=== PATIENT | male | born 1940 | race Caucasian/White ===

== ENCOUNTER 2019-01-24 18:23 | Inpatient (IN) | payer MEDICARE, SELFPAY ==
[2019-01-24] VITALS (15 sets, daily range): BP systolic 83–127; BP diastolic 50–71; PULSE 48–85; RESP 13–22; TEMP 36.2–36.6; O2SAT 96–99; BMI 22.9; BMI 24.2
--- NOTE | 2019-01-24 18:24 | ED.RN ---
PER DR. CALIX THIS IS NOT A STROKE.
--- NOTE | 2019-01-24 18:26 | CT_ITS ---
STUDY: CT BRAIN WITHOUT CONTRAST REASON FOR EXAM: Male, 78 years old. Altered mental status. TECHNIQUE: Transaxial CT imaging of the brain was performed without administration of intravenous contrast material. Individualized dose optimization techniques were used for this CT. COMPARISON: No relevant priors. FINDINGS: No evidence of intracranial hemorrhage, mass, acute infarct, or hydrocephalus. [Chronic microangiopathic changes in the white matter.] [Atherosclerosis of the intracranial arteries.] [No acute osseous abnormality.] [Visualized paranasal sinuses and mastoid air cells patent.] [Visualized intracranial soft tissues unremarkable.] [ASPECTS 03/28] CT/Brain/Head without Contrast IMPRESSION: No acute intracranial findings. Electronically Signed: Ashok Lamb, at 19:36 EDT Tel , Service support ,
--- NOTE | 2019-01-24 18:26 | EKG12_ITS ---
Test Reason : STROKE SX Blood Pressure : / mmHG Vent. Rate : 057 BPM Atrial Rate : 057 BPM P-R Int : 158 ms QRS Dur : 086 ms QT Int : 416 ms P-R-T Axes : 066 048 037 degrees QTc Int : 404 ms Sinus bradycardia Otherwise normal ECG Confirmed by EMILY PRUETT ([id number]), editor news SG NGUYỄN ([id number]) on 01/28/2019 1:17:49 PM Referred By: Eduardo Travis Confirmed By:EMILY PRUETT
--- NOTE | 2019-01-24 18:29 | ED.VIS.GEN ---
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 She noted acute change in mental status after his Solomon was changed. They states he has not spoken. He did respond note when the nurse asked how tall he was or how much she weighed. Limited by: - - Not alert or oriented Onset: Today - 1600 Context: Sudden Onset Timing: Continuous - Change in mental status Quality: Altered mental status Location: Residents Current Severity: Severe Maximum Severity: Severe Worsened by: Probable UTI after Solomon placement Relieved by: Nothing Associated Symptoms: Unable to determine Narrative: Patient is an 78-year-old male who was brought by ambulance and prehospital stroke alert was called. Based on history concern patient has infectious etiology for his change in mental status. Based on his abnormal facial twitches on the left also need to evaluate for focal seizure. Patient unable to give history. Prior similar symptoms: No Recent Illness/Hospitalization: No Past Medical History - Allergies and Home Meds Allergies/Adverse Reactions: Allergies No Known Allergies Allergy (Verified 01/24/19 18:34) Primary Care Physician: Sacha Flores MD [STAFF PHYSICIAN] - Lives: With Family Alcohol: None Drugs: None Diagnostic/Tx/Re-eval Chest X-Ray - ED: Read by Radiologist, Normal, Heart, Lungs, Mediastinum, Bony Structures, No Acute Disease Impressions Brain CT 01/24/19 18:26 IMPRESSION: No acute intracranial findings. Electronically Signed: Joseangelito Adonis, at 19:36 EDT Tel , Service support , Chest X-Ray 01/24/19 18:40 IMPRESSION: [Negative chest radiograph.] Electronically Signed: Ashok Lamb, at 18:58 EDT Tel , Service support , 01/24/19 18:26 Brain/Head without Contrast [CT] Stat 01/24/19 18:40 Chest 1 View (Portable) [RAD] Stat Laboratory Results 01/24/19 01/24/19 01/24/19 18:29 18:29 18:29 WBC 11.1 H RBC 3.11 L Hgb 10.0 L Hct 29.1 L MCV 93.6 MCH 32.2 H MCHC 34.4 RDW Std Deviation 42.8 RDW Coeff of Jaylin 12.5 Plt Count 222 MPV 9.2 Immature Gran % (Auto) 0.600 Neut % (Auto) 78.7 H Lymph % (Auto) 12.6 L Reeves % (Auto) 7.3 Eos % (Auto) 0.5 Baso % (Auto) 0.3 Absolute Neuts (auto) 8.7 H Absolute Lymphs (auto) 1.40 Nucleated RBC % 0 PT 13.6 INR 1.1 APTT 29.7 Sodium 118 L* Potassium 4.0 Chloride 84 L Carbon Dioxide 26.0 Anion Gap 8 BUN 21 H Creatinine 1.25 Estim Creat Clear Calc 48.33 Est GFR (MDRD) Af Amer 71 Est GFR (MDRD) Non-Af 59 L BUN/Creatinine Ratio 16.8 Glucose 193 H Lactic Acid Calcium 8.0 L Total Bilirubin 0.50 AST 12 L ALT 15 L Alkaline Phosphatase 50 Total Protein 6.3 L Albumin 3.6 Globulin 2.7 Albumin/Globulin Ratio 1.3 Urine Color Urine Clarity Urine pH Ur Specific [place] Urine Protein Urine Glucose (UA) Urine Ketones Urine Occult Blood Urine Nitrite Urine Bilirubin Urine Urobilinogen Ur Leukocyte Esterase Urine RBC Urine WBC Ur Squamous Epith Cells Urine Bacteria Urine Mucus 01/24/19 01/24/19 18:29 18:45 WBC RBC Hgb Hct MCV MCH MCHC RDW Std Deviation RDW Coeff of Jaylin Plt Count MPV Immature Gran % (Auto) Neut % (Auto) Lymph % (Auto) Reeves % (Auto) Eos % (Auto) Baso % (Auto) Absolute Neuts (auto) Absolute Lymphs (auto) Nucleated RBC % PT INR APTT Sodium Potassium Chloride Carbon Dioxide Anion Gap BUN Creatinine Estim Creat Clear Calc Est GFR (MDRD) Af Amer Est GFR (MDRD) Non-Af BUN/Creatinine Ratio Glucose Lactic Acid 1.6 Calcium Total Bilirubin AST ALT Alkaline Phosphatase Total Protein Albumin Globulin Albumin/Globulin Ratio Urine Color Yellow Urine Clarity Cloudy Urine pH 8.0 Ur Specific [place] 1.010 Urine Protein 30 H Urine Glucose (UA) 250 H Urine Ketones 15 H Urine Occult Blood 250 H Urine Nitrite Negative Urine Bilirubin Negative Urine Urobilinogen Normal Ur Leukocyte Esterase 100 H Urine RBC > 100 SEEN Urine WBC 5-10 SEEN Ur Squamous Epith Cells 0 SEEN Urine Bacteria 0 SEEN Urine Mucus 0 SEEN - Medical Decision Making With change in mental status after placement of Solomon and urine appears cloudy and with gross hematuria concern for urinary tract infection. Sepsis work-up was undertaken. Because he has Babinski sign and facial twitching on the left need to evaluate for seizure, intracranial bleed. Sodium is 118. Sister is now present. She states the left facial twitching is new. Concern patient is a focal seizure and may be secondary to hyponatremia. 3% sodium chloride was ordered at 50 cc per per hour. Urine does not appear infected. He does have evidence of anemia. Chest x-ray reveals no acute pathology. CT has not been performed. - Critical Care Time Critical care time (excluding procedures): 30-74 minutes, Discussing w/Patient &/or Family/Business Account Specialist, Discussing w/Consultants, Arranging Admission or Transfer - Critical care time 37 minutes ED Disposition - Plan for ED Patient: Disposition: Acute Care Hospital [facility] Diagnosis: Hyponatremia, Facial twitching, Change in mental status, Hyperglycemia due to type 2 diabetes mellitus Referrals: Sacha Flores MD [STAFF PHYSICIAN] -
--- NOTE | 2019-01-24 18:40 | RAD_ITS ---
STUDY: X-RAY CHEST REASON FOR EXAM: Male, 78 years old. Right-sided weakness and facial droop. ALOC. TECHNIQUE: AP portable upright CXR COMPARISON: None. FINDINGS: [No apparent pneumothorax, pneumonia, pleural effusion, or edema.] [Cardiac silhouette, kike and mediastinal contours are within normal limits.] [No acute osseous abnormality.] [No evidence of free air under the diaphragm.] RAD/Chest 1 View (Portable) IMPRESSION: [Negative chest radiograph.] Electronically Signed: Ashok Lamb, at 18:58 EDT Tel , Service support ,
[2019-01-24 18:42] LABS: Absolute Neutrophil Count 8.7 X10^3/uL (2.0-7.7); Basophil# 0.03 X10^3/uL; Basophil% 0.3 % (0-1); Eosinophil# 0.06 X10^3/uL; Eosinophils% 0.5 % (0-5); Hematocrit 29.1 % (40-54); Lymphocyte % 12.6 % (19-41); Mean Corp Hgb Conc 34.4 g/dL (32-36); Mean Corpuscular Hgb 32.2 pg (27.0-32.0); Mean Corpuscular Volume 93.6 fL (80-94); Mean Platelet Vol. 9.2 fl (6.2-12.0); Monocyte# 0.81 X10^3/uL; Monocyte% 7.3 % (0-10); NRBC Flagged by Analyzer 0 % (0-5); Neutrophil # 8.72 X10^3/uL (2.7-7.7); Neutrophil % 78.7 % (47-70); Platelet Count 222 K/mm3 (150-450); RBC Distribution Width CV 12.5 % (11.6-14.6); RBC Distribution Width SD 42.8 fl (35.1-43.9); Red Blood Count 3.11 M/mm3 (4.6-6.2); White Blood Count 11.1 K/mm3 (4.4-11.0)
[2019-01-24 18:47] LABS: International Normalized Ratio 1.1; Prothrombin Time (Protime)PT. 13.6 SECONDS (11.7-14.9)
[2019-01-24 18:48] LABS: Partial Thromboplast Time 29.7 Seconds (24.1-36.2)
[2019-01-24] MEDS: Ceftriaxone 1 GM/50 ML BAG IV (18:52)
--- NOTE | 2019-01-24 18:55 | ED.RN ---
ITTLE TO NO INFO GIVEN TO THIS RN BY EMS. THIS RN HAD TO ASK EMS 3 TIMES FOR SS TO TRIAGE PT. NO HEALTH HX OR MEDICATION HX ON PT. NOTHING SAID WHETHER OR NOT FAMILY WOULD BE ARRIVING TO ED.
[2019-01-24 18:57] LABS: Bacteria 0 SEEN /hpf (None Seen); Mucous, Urine 0 SEEN /hpf (<or=2+); Squamous Epithelial Cells - UA 0 SEEN /hpf (0-5)
[2019-01-24 18:58] LABS: ALB/GLOB Ratio 1.3 RATIO (0.9-2.4); AST(SGOT) 12 U/L (15-37); Alanine Aminotransfer ALT/SGPT 15 U/L (16-61); Albumin, Serum 3.6 g/dL (3.2-5.0); Alkaline Phosphatase 50 U/L (45-117); Anion Gap 8 (5-15); BUN 21 mg/dL (7-18); BUN/Creat Ratio 16.8 RATIO (10-20); Chloride 84 mmol/L (98-107); Creatinine, Serum 1.25 mg/dL (0.70-1.30); EST Glomerular Filtration Rate 59 mL/min (>60); Est Glom Filt Rate - Afr Amer 71 mL/min (>60); Estimated Creatinine Clearance 48.33 ml/min; Globulin 2.7 g/dL (2.2-4.2); Glucose 193 mg/dL (74-106); Protein, Total 6.3 g/dL (6.4-8.2); Sodium Level 118 mmol/L (136-145)
[2019-01-24 19:01] LABS: Color, Urine Yellow (Yellow); Glucose, Dipstick 250 mg/dl (Normal); Ketone-Dipstick 15 mg/dl (Negative); Leukocyte Esterase-Dipstick 100 /ul (Negative); Nitrite-Dipstick Negative (Negative); Occult Blood-Urine 250 /ul (Negative); Protein-Dipstick 30 mg/dl (Negative); Urine Bilirubin Dipstick Negative (Negative); Urine Clarity Cloudy (Clear); Urine Urobilinogen Normal (Normal)
[2019-01-24 19:03] LABS: Lactic Acid 1.6 mmol/L (0.4-2.0)
[2019-01-24 19:08] LABS: Red Blood Cells-Urine > 100 SEEN /hpf (0-5); White Blood Cells 5-10 SEEN /hpf (0-5)
[2019-01-24] MEDS: Sodium Chloride 3% 500 ML 50 ML IV (19:36)
--- NOTE | 2019-01-24 19:43 | NURSING ---
TALKED TO [facility] AND WAS TOLD PATIENT COULD STAY AND THEY WILL FOLLOW UP TOMORROW
--- NOTE | 2019-01-24 19:58 | HP.PCM_ITS ---
Problem List (1) Hyponatremia Status: Acute (2) Facial twitching Status: Acute (3) Change in mental status Status: Acute History of Present Illness Date of Admission: 01/24/19 Chief Complaint: Fidgeting The patient is a 78 year old M with a significant history of diabetes mellitus; hypertension; hyperlipidemia; BPH status post TURP who presented to the emergency department because his family noticed that he was fidgeting. On the same day of presentation patient went to the doctor's office where a previous Solomon catheter was placed. Patient was given water to drink. However he vomited the water. Because he could not urinate the urinary catheter was placed back. At the emergency department patient was found to have some twitching of the face that his family reported that it was new. Patient was found to have low sodium. Past Medical History Medical History: Medical History (Last Reviewed 01/24/19 @ 23:53 by Eduardo Travis MD) Diabetes E11.9 HTN (hypertension) I10 Allergies No Known Allergies Allergy (Verified 01/24/19 18:34) Home Medications: Ambulatory Orders Medication Instructions Recorded Aspirin [Aspirin, Baby] 81 mg PO DAILY@0800 01/24/19 Cholecalciferol (VIT D3) [Vitamin 1,000 unit PO DAILY 01/24/19 D] Fosinopril Sodium 10 mg PO DAILY 01/24/19 Glipizide 5 mg PO DAILY 01/24/19 Metformin HCl 850 mg PO BID 01/24/19 Mirtazapine [Remeron] 7.5 mg PO DAILY 01/24/19 Pioglitazone [Actos] 15 mg PO DAILY 01/24/19 Simvastatin 40 mg PO DAILY 01/24/19 Tamsulosin HCl 0.4 mg PO DAILY 01/24/19 Surgical History: Surgical History (Last Reviewed 01/24/19 @ 23:53 by Eduardo Travis MD) S/P TURP Z90.79 Lives: With Family Smoking Status: Unknown if ever smoked Alcohol: None Drugs: None - *Family History Maternal History Items: Cancer Paternal History Items: Diabetes, Heart Disease, - - His father had amputation of his leg. Review of Systems Unable to obtain accurate/complete ROS d/t: Encephalopathy VTE Information - Inpt Only VTE Present on Admission: No VTE Mechan Device Prophylaxis: None VTE Pharm Prophylaxis ordered?: Yes Patient Problems: Active and Suspected Problems (Last Updated 01/24/19 @ 22:13 by Eduardo Travis MD) Hyponatremia (Acute) Facial twitching (Acute) Change in mental status (Acute) Hyperglycemia due to type 2 diabetes mellitus (Acute) - Physical Exam General: Alert, Confused HEENT: Atraumatic, Normocephalic Neck: Supple, No JVD, Negative Carotid Bruits Lungs: Clear to auscultation, Normal air movement Cardiovascular: Bradycardic Abdomen: Bowel Sounds Present, Soft, Non Tender Extremities: No edema, Capillary Refill Less than 3 Seconds Skin: No rashes, No breakdown Musculoskeletal: No Tenderness to Palpation of Joints or Extremities - Confused. Neurological: Cranial nerves II-XII grossly intact - Hard of hearing Psych/Mental Status: Anxious Vital Signs Temp Pulse Resp BP Pulse Ox 97.7 F L 59 L 22 H 106/63 96 01/24/19 18:25 01/24/19 19:26 01/24/19 19:26 01/24/19 19:26 01/24/19 19:26 Oxygen Delivery Method Room Air Weight: 72.5 kg Body Mass Index (BMI) 22.9 Finger Stick Blood Glucose 212 Laboratory Tests Past 24 Hrs 01/24/19 01/24/19 01/24/19 18:29 18:29 18:29 WBC 11.1 H RBC 3.11 L Hgb 10.0 L Hct 29.1 L MCV 93.6 MCH 32.2 H MCHC 34.4 RDW Std Deviation 42.8 RDW Coeff of Jaylin 12.5 Plt Count 222 MPV 9.2 Immature Gran % (Auto) 0.600 Neut % (Auto) 78.7 H Lymph % (Auto) 12.6 L [place] % (Auto) 7.3 Eos % (Auto) 0.5 Baso % (Auto) 0.3 Absolute Neuts (auto) 8.7 H Absolute Lymphs (auto) 1.40 Nucleated RBC % 0 PT 13.6 INR 1.1 APTT 29.7 Sodium 118 L* Potassium 4.0 Chloride 84 L Carbon Dioxide 26.0 Anion Gap 8 BUN 21 H Creatinine 1.25 Estim Creat Clear Calc 48.33 Est GFR (MDRD) Af Amer 71 Est GFR (MDRD) Non-Af 59 L BUN/Creatinine Ratio 16.8 Glucose 193 H Lactic Acid Calcium 8.0 L Total Bilirubin 0.50 AST 12 L ALT 15 L Alkaline Phosphatase 50 Total Protein 6.3 L Albumin 3.6 Globulin 2.7 Albumin/Globulin Ratio 1.3 Urine Color Urine Clarity Urine pH Ur Specific [place] Urine Protein Urine Glucose (UA) Urine Ketones Urine Occult Blood Urine Nitrite Urine Bilirubin Urine Urobilinogen Ur Leukocyte Esterase Urine RBC Urine WBC Ur Squamous Epith Cells Urine Bacteria Urine Mucus 01/24/19 01/24/19 18:29 18:45 WBC RBC Hgb Hct MCV MCH MCHC RDW Std Deviation RDW Coeff of Jaylin Plt Count MPV Immature Gran % (Auto) Neut % (Auto) Lymph % (Auto) [place] % (Auto) Eos % (Auto) Baso % (Auto) Absolute Neuts (auto) Absolute Lymphs (auto) Nucleated RBC % PT INR APTT Sodium Potassium Chloride Carbon Dioxide Anion Gap BUN Creatinine Estim Creat Clear Calc Est GFR (MDRD) Af Amer Est GFR (MDRD) Non-Af BUN/Creatinine Ratio Glucose Lactic Acid 1.6 Calcium Total Bilirubin AST ALT Alkaline Phosphatase Total Protein Albumin Globulin Albumin/Globulin Ratio Urine Color Yellow Urine Clarity Cloudy Urine pH 8.0 Ur Specific [place] 1.010 Urine Protein 30 H Urine Glucose (UA) 250 H Urine Ketones 15 H Urine Occult Blood 250 H Urine Nitrite Negative Urine Bilirubin Negative Urine Urobilinogen Normal Ur Leukocyte Esterase 100 H Urine RBC > 100 SEEN Urine WBC 5-10 SEEN Ur Squamous Epith Cells 0 SEEN Urine Bacteria 0 SEEN Urine Mucus 0 SEEN Assessment/Plan All Active Problems (Last Updated 01/24/19 @ 22:13 by Eduardo Travis MD) Hyponatremia (Acute) Facial twitching (Acute) Change in mental status (Acute) Hyperglycemia due to type 2 diabetes mellitus (Acute) The patient is a 78 year old M with a significant history of diabetes mellitus; hypertension; hyperlipidemia; BPH status post TURP who presented to the emergency department because his family noticed that he was fidgeting; and also noticed to have a twitches of the face and found to have hyponatremia.. Acute encephalopathy secondary to hypovolemic hypoosmolar hyponatremia On presentation his sodium was 118 His serum osmolality was 253. His TSH and his cortisol level was unremarkable. His urine osmolality was 614. We will check urine sodium. Patient was started at 3% hypertonic saline at 50 mils per hour at the ED. We will continue and admit patient to the intensive care unit. Check sodium level every 4 hours. Carbonation Equipment Operator consult. Most likely his twitching; fidgeting and altered mental status is from his low sodium. At the emergency department discussed with the emergency department doctor to give Keppra. However, all his symptoms are likely from the hyponatremia. We will repeat additional dose of Keppra in a.m. Will get EEG. If symptoms persist consider MRI; consult neurology; and continue Keppra. We will keep patient n.p.o. Speech to eval for swallowing. Trend CBC Abnormal urinalysis Patient noted to have urine occult blood and leukocyte esterase in his urine. Of note patient has a urinary catheter. Urine bacteria was 0. Patient received ceftriaxone at the emergency department. Because of his acute symptoms we will continue ceftriaxone at this time. Urine culture is pending Hypertension On presentation his blood pressure was within goal. Because of n.p.o. status hold fosinopril. Hydralazine as needed ordered. Trend blood pressures and adjust blood pressure medication as necessary.. Diabetes mellitus On presentation his blood glucose was within hospital goal of 140-193. At home metformin and glipizide as well as Actos. Will hold oral hypoglycemic regimen especially as patient is n.p.o. and is too early in his admission. Will put patient on correction scale insulin. Accu-Chek every 6 hours. DVT Prophylaxis Subcutaneous Lovenox. Code Visit Inpatient E&M: 16317 Init Hosp L3
[2019-01-24 20:23] LABS: Thyroid Stim Hormone (TSH) 0.89 uIU/mL (0.358-3.74)
[2019-01-24] MEDS: Morphine 2 MG/ML Syringe IV (20:26)
[2019-01-24 20:39] LABS: Osmolality, Urine 614 mOsm/KG
[2019-01-24 20:39] LABS: Osmolality, Serum 253 mOsm/KG (280-301)
[2019-01-24] MEDS: levETIRAcetam IV 1,000 MG/100 ML BAG 400 MG IV (20:39)
[2019-01-24] MEDS: Ondansetron 4 MG/2 ML Vial IV (20:55)
[2019-01-24 22:07] LABS: Sodium Level 120 mmol/L (136-145)
[2019-01-25] VITALS (22 sets, daily range): BP systolic 83–134; BP diastolic 27–67; PULSE 49–76; RESP 13–19; TEMP 36.5–37.4; O2SAT 95–100
[2019-01-25 00:16] LABS: Bedside Glucose 150 mg/dL (70-110)
[2019-01-25 00:47] LABS: Urine Sodium 61 mmol/L (Not Establ.)
[2019-01-25 02:08] LABS: Absolute Lymphocyte Count 1.76 X10^3/uL (0.83-4.51); Absolute Neutrophil Count 7.9 X10^3/uL (2.0-7.7); Basophil# 0.02 X10^3/uL; Basophil% 0.2 % (0-1); Eosinophil# 0.07 X10^3/uL; Eosinophils% 0.7 % (0-5); Hematocrit 29.3 % (40-54); Lymphocyte # 1.76 X10^3/ul (4.0); Lymphocyte % 16.6 % (19-41); Mean Corp Hgb Conc 34.1 g/dL (32-36); Mean Corpuscular Hgb 31.7 pg (27.0-32.0); Mean Platelet Vol. 9.5 fl (6.2-12.0); Monocyte# 0.79 X10^3/uL; Monocyte% 7.5 % (0-10); NRBC Flagged by Analyzer 0 % (0-5); Neutrophil # 7.91 X10^3/uL (2.7-7.7); Neutrophil % 74.7 % (47-70); Platelet Count 222 K/mm3 (150-450); RBC Distribution Width CV 12.4 % (11.6-14.6); RBC Distribution Width SD 41.8 fl (35.1-43.9); Red Blood Count 3.15 M/mm3 (4.6-6.2); White Blood Count 10.6 K/mm3 (4.4-11.0)
[2019-01-25 02:22] LABS: Sodium Level 124 mmol/L (136-145)
[2019-01-25] MEDS: 0.9% Normal Saline 1,000 ML 75 ML IV (02:58)
[2019-01-25 05:46] LABS: Bedside Glucose 125 mg/dL (70-110)
[2019-01-25 06:12] LABS: Sodium Level 128 mmol/L (136-145)
--- NOTE | 2019-01-25 07:27 | PCM.PN.HOSP ---
Patient Problems: Active and Suspected Problems (Last Reviewed 01/25/19 @ 06:45 by Narda Dang) Hyponatremia (Acute) Facial twitching (Acute) Change in mental status (Acute) Hyperglycemia due to type 2 diabetes mellitus (Acute) S/P TURP (status post transurethral resection of prostate) (Acute) Subjective: Patient was seen and examined. He remains confused. No facial twitiching seen. Oriented only to self, not to place or time. Attempted to call his daughter twice; no response. Vitals/I&O's: Vital Signs Temp Pulse Resp BP Pulse Ox 98.2 F 52 L 13 99/51 L 99 01/25/19 04:00 01/25/19 07:00 01/25/19 07:00 01/25/19 07:00 01/25/19 07:00 Oxygen Delivery Method Room Air Weight: 70.2 kg Body Mass Index (BMI) 24.2 Finger Stick Blood Glucose 212 Intake and Output for Last 24 Hours 01/23/19 01/24/19 01/25/19 23:59 23:59 23:59 Intake Total 687 / 687 Output Total 2925 / 2925 Balance -2238 / -2238 General: Alert, Cooperative, No apparent distress, Confused - oriented only to self HEENT: Atraumatic, PERRLA, EOMI, Normocephalic Oral: Dry Mucosa Neck: Supple Lungs: Clear to auscultation, Normal air movement Cardiovascular: Regular rate, Regular Rhythm, Normal S1, Normal S2, No murmurs Abdomen: Bowel Sounds Present, Soft, Non Tender, Non-Distended, No Hepato-splenomegaly Extremities: No edema Skin: No rashes, No breakdown Musculoskeletal: No Tenderness to Palpation of Joints or Extremities Lymphatic: No Cervical, Supraclavicular, or Inguinal Adenopathy Neurological: Cranial nerves II-XII grossly intact, Neuro grossly intact Psych/Mental Status: Normal Affect, Appropriate Laboratory Results 01/24/19 18:29: WBC 11.1 H, RBC 3.11 L, Hgb 10.0 L, Hct 29.1 L, MCV 93.6, MCH 32.2 H, MCHC 34.4, RDW Std Deviation 42.8, RDW Coeff of Jaylin 12.5, Plt Count 222, MPV 9.2, Immature Gran % (Auto) 0.600, Neut % (Auto) 78.7 H, Lymph % (Auto) 12.6 L, [place] % (Auto) 7.3, Eos % (Auto) 0.5, Baso % (Auto) 0.3, Absolute Neuts (auto) 8.7 H, Absolute Lymphs (auto) 1.40, Nucleated RBC % 0 01/24/19 18:29: PT 13.6, INR 1.1, APTT 29.7 01/24/19 18:29: Sodium 118 L*, Potassium 4.0, Chloride 84 L, Carbon Dioxide 26.0, Anion Gap 8, BUN 21 H, Creatinine 1.25, Estim Creat Clear Calc 48.33, Est GFR (MDRD) Af Amer 71, Est GFR (MDRD) Non-Af 59 L, BUN/Creatinine Ratio 16.8, Glucose 193 H, Calcium 8.0 L, Total Bilirubin 0.50, AST 12 L, ALT 15 L, Alkaline Phosphatase 50, Total Protein 6.3 L, Albumin 3.6, Globulin 2.7, Albumin/Globulin Ratio 1.3 01/24/19 18:29: Lactic Acid 1.6 01/24/19 18:29: Cortisol 18.50 01/24/19 18:29: Serum Osmolality 253 L 01/24/19 18:29: TSH 0.89 01/24/19 18:45: Urine Color Yellow, Urine Clarity Cloudy, Urine pH 8.0, Ur Specific [place] 1.010, Urine Protein 30 H, Urine Glucose (UA) 250 H, Urine Ketones 15 H, Urine Occult Blood 250 H, Urine Nitrite Negative, Urine Bilirubin Negative, Urine Urobilinogen Normal, Ur Leukocyte Esterase 100 H, Urine RBC > 100 SEEN, Urine WBC 5-10 SEEN, Ur Squamous Epith Cells 0 SEEN, Urine Bacteria 0 SEEN, Urine Mucus 0 SEEN 01/24/19 18:45: Urine Osmolality 614 01/24/19 18:45: Ur Random Sodium 61 01/24/19 21:53: Sodium 120 L 01/25/19 00:12: POC Glucose 150 H 01/25/19 02:00: Sodium 124 L 01/25/19 02:00: WBC 10.6, RBC 3.15 L, Hgb 10.0 L, Hct 29.3 L, MCV 93.0, MCH 31.7, MCHC 34.1, RDW Std Deviation 41.8, RDW Coeff of Jaylin 12.4, Plt Count 222, MPV 9.5, Immature Gran % (Auto) 0.300, Neut % (Auto) 74.7 H, Lymph % (Auto) 16.6 L, [place] % (Auto) 7.5, Eos % (Auto) 0.7, Baso % (Auto) 0.2, Absolute Neuts (auto) 7.9 H, Absolute Lymphs (auto) 1.76, Nucleated RBC % 0 01/25/19 05:38: POC Glucose 125 H 01/25/19 05:53: Sodium 128 L Current Medications Acetaminophen (Tylenol) 650 mg PO Q6H PRN PRN PRN Reason: Mild Pain (1-3)/Temp > 100.7 F Dextrose (D50w Syringe) 0 gm IV X1 PRN; Protocol PRN Reason: Hypoglycemia Enoxaparin Sodium (Lovenox) 40 mg SC DAILY@1000 MAT Glucagon () 1 mg IM .X1 PRN PRN Reason: Hypoglycemia Hydralazine HCl (Apresoline Iv) 5 mg IV Q4H PRN PRN PRN Reason: SBP > 160 Sodium Chloride () 250 mls @ 15 mls/hr IV .[id number] PRN PRN Reason: SALINE FLUSH Ceftriaxone Sodium (Rocephin) 1 gm in 50 mls @ 100 mls/hr IV Q24@2200 MAT Sodium Chloride (Sodium Chloride 3%) 500 mls @ 50 mls/hr IV .Q10H MAT Last Admin: 01/24/19 23:38 Dose: Not Given Documented by: Sodium Chloride () 1,000 mls @ 75 mls/hr IV .[id number] [facility] Last Admin: 01/25/19 02:58 Dose: 75 mls/hr Documented by: Insulin Human Lispro (Humalog Kwikpen (Bkc)) 0 unit SC Q6 MAT; Protocol Last Admin: 01/25/19 05:41 Dose: Not Given Documented by: Ondansetron HCl (Zofran) 4 mg IV Q8H PRN PRN PRN Reason: NAUSEA/VOMITING Sodium Chloride () 10 - 40 ml IV UD PRN PRN Reason: SALINE FLUSH Medical Necessity - Tobacco Use Smoking Status: Former smoker Tobacco Use: Cigarettes, Pipe Assessment/Plan All Active Problems (Last Reviewed 01/25/19 @ 06:45 by Narda Dang) Hyponatremia (Acute) Facial twitching (Acute) Change in mental status (Acute) Hyperglycemia due to type 2 diabetes mellitus (Acute) S/P TURP (status post transurethral resection of prostate) (Acute) 1. Acute metabolic encephalopathy secondary to severe hypoosmolar hyponatremia, oriented to self, unclear of his baseline cognitive status Tried calling the daughter, continue to reach out to clarify baseline cognitive status Continue to monitor. 2. 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 Facial twitching likely secondary to #2, twitching seen, giving Keppra, will hold off Keppra We will pursue EEG if patient has further twitching. 4. Type 2 DM, off her home meds, on glucose checks with insulin sliding scale 5. Hypertension, relatively hypotensive, continue to hold home BP meds, 6. Possible UTI, other urine cultures are pending, continue on IV ceftriaxone 7. DVT PPx- Lovenox SC 8. Disposition: Pending PT/OT eval Code Visit Inpatient E&M: 49332 Subs Hosp L2
--- NOTE | 2019-01-25 08:05 | PCM.CON.CC ---
Problem List (1) S/P TURP (status post transurethral resection of prostate) Status: Acute (2) Hyponatremia Status: Acute (3) Facial twitching Status: Acute (4) Change in mental status Status: Acute Qualifiers: Altered mental status type: delirium Qualified Code(s): R41.0 - Disorientation, unspecified (5) Hyperglycemia due to type 2 diabetes mellitus Status: Acute Reason for Consult Date of Consultation: 01/25/19 Reason for Consultation: Hyponatremia History of Present Illness: The patient is a 78 year old M, with past medical history listed below, who presented [facility] on 01/24/2019 secondary to facial twitching and change in mental status. Paramedics were reportedly called by patient's daughter, but patient has not been able to provide much history. Patient was noted to have abnormal left facial twitching, so a prehospital stroke alert was called. Patient reportedly has had issues with urinary retention recently and has been seeing his urologist. In the ER, patient was noted to have cloudy urine with gross hematuria. There was also some concern for possible intracranial bleed versus seizure. Laboratory work-up was significant for a sodium of 118, so patient was initiated on 3% sodium chloride. Chest x-ray was not suggestive of acute issues. Patient was given Keppra for possible seizure activity Patient was admitted to the intensive care unit and remained on 3% sodium chloride until his sodium at 124. Patient has been on normal saline since that time. Patient continues to provide little to no history. Patient will open his eyes and track, but is not interacting with myself or staff. Per the electronic medical record, patient does have BPH status post TURP. Exact timing of the TURP is unclear at this time, but patient was seen at the urologist office on the same day of presentation to the ER. There was some concern for urinary retention, so patient was given water to drink. Patient could not urinate, so Solomon catheter was placed. Exact volume of water is unclear, but some reports report up to 1 gallon of water. Nursing did note a stage I decubitus ulcer on his left hip. Patient has been hemodynamically stable on room air since admission. Patient is reportedly a DNR Comfort Care, but this has not been personally reviewed with patient's daughter. A complete review of systems is not able to be obtained secondary to patient's mental status. Past Medical History Medical History: Medical History (Last Reviewed 01/24/19 @ 23:53 by Eduardo Travis MD) Diabetes E11.9 HTN (hypertension) I10 Allergies No Known Allergies Allergy (Verified 01/24/19 18:34) Home Medications: Ambulatory Orders Medication Instructions Recorded Aspirin [Aspirin, Baby] 81 mg PO DAILY@0800 01/24/19 Cholecalciferol (VIT D3) [Vitamin 1,000 unit PO DAILY 01/24/19 D] Fosinopril Sodium 10 mg PO DAILY 01/24/19 Glipizide 5 mg PO DAILY 01/24/19 Metformin HCl 850 mg PO BID 01/24/19 Mirtazapine [Remeron] 7.5 mg PO DAILY 01/24/19 Pioglitazone [Actos] 15 mg PO DAILY 01/24/19 Simvastatin 40 mg PO DAILY 01/24/19 Tamsulosin HCl 0.4 mg PO DAILY 01/24/19 Surgical History: Surgical History (Last Reviewed 01/25/19 @ 06:45 by Narda Dang) S/P TURP Z90.79 Lives: With Family Smoking Status: Former smoker Tobacco Use: Cigarettes, Pipe Alcohol: None Drugs: None - *Family History Maternal History Items: Cancer Paternal History Items: Diabetes, Heart Disease, - - His father had amputation of his leg. Review of Systems Unable to obtain accurate/complete ROS d/t: See HPI Patient Problems: Active and Suspected Problems (Last Reviewed 01/25/19 @ 06:45 by Narda Dang) Hyponatremia (Acute) Facial twitching (Acute) Change in mental status (Acute) Hyperglycemia due to type 2 diabetes mellitus (Acute) S/P TURP (status post transurethral resection of prostate) (Acute) Objective: Chest x-ray was personally reviewed and was unremarkable. CT scan of the head showed no acute intracranial findings. - Physical Exam General: - - RASS -1. Frail appearance. Appears stated age. No accessory muscle use or apparent distress is noted. HEENT: Atraumatic, PERRLA, EOMI, Normocephalic, - - No scleral icterus or injection noted. Some temporal wasting appreciated. Oral: No Gingival or Mucosal Lesions/ Ulcerations, Dry Mucosa Neck: Supple, No JVD, No Nodes, Trachea Midline Lungs: No rhonchi, No wheeze, No rales, Diminished, - - Poor effort Cardiovascular: Normal S1, Normal S2, No murmurs, Bradycardic, No rub noted, No Gallop Abdomen: Bowel Sounds Present, Soft, Non Tender, Non-Distended, Obese Extremities: No clubbing, No cyanosis, No edema, Capillary Refill Less than 3 Seconds Skin: - - Stage I decubitus on left hip Musculoskeletal: No Tenderness to Palpation of Joints or Extremities, Muscle Wasting Lymphatic: No Cervical, Supraclavicular, or Inguinal Adenopathy Neurological: - - Patient minimally cooperative with exam, but does move all 4 extremities. No active facial twitching noted on my examination Psych/Mental Status: Flat Affect Vital Signs Temp Pulse Resp BP Pulse Ox 36.8 C 52 L 13 99/51 L 99 01/25/19 04:00 01/25/19 07:00 01/25/19 07:00 01/25/19 07:00 01/25/19 07:00 Oxygen Delivery Method Room Air Weight: 70.2 kg Body Mass Index (BMI) 24.2 Finger Stick Blood Glucose 212 Intake and Output for Last 24 Hours 01/23/19 01/24/19 01/25/19 23:59 23:59 23:59 Intake Total 687 / 687 Output Total 2925 / 2925 Balance -2238 / -2238 Laboratory Tests Past 24 Hrs 01/24/19 01/24/19 01/24/19 18:29 18:29 18:29 WBC 11.1 H RBC 3.11 L Hgb 10.0 L Hct 29.1 L MCV 93.6 MCH 32.2 H MCHC 34.4 RDW Std Deviation 42.8 RDW Coeff of Jaylin 12.5 Plt Count 222 MPV 9.2 Immature Gran % (Auto) 0.600 Neut % (Auto) 78.7 H Lymph % (Auto) 12.6 L [place] % (Auto) 7.3 Eos % (Auto) 0.5 Baso % (Auto) 0.3 Absolute Neuts (auto) 8.7 H Absolute Lymphs (auto) 1.40 Nucleated RBC % 0 PT 13.6 INR 1.1 APTT 29.7 Sodium 118 L* Potassium 4.0 Chloride 84 L Carbon Dioxide 26.0 Anion Gap 8 BUN 21 H Creatinine 1.25 Estim Creat Clear Calc 48.33 Est GFR (MDRD) Af Amer 71 Est GFR (MDRD) Non-Af 59 L BUN/Creatinine Ratio 16.8 Glucose 193 H Serum Osmolality Lactic Acid Calcium 8.0 L Total Bilirubin 0.50 AST 12 L ALT 15 L Alkaline Phosphatase 50 Total Protein 6.3 L Albumin 3.6 Globulin 2.7 Albumin/Globulin Ratio 1.3 TSH Cortisol Urine Color Urine Clarity Urine pH Ur Specific [place] Urine Protein Urine Glucose (UA) Urine Ketones Urine Occult Blood Urine Nitrite Urine Bilirubin Urine Urobilinogen Ur Leukocyte Esterase Urine RBC Urine WBC Ur Squamous Epith Cells Urine Bacteria Urine Mucus Urine Osmolality Ur Random Sodium 01/24/19 01/24/19 01/24/19 18:29 18:29 18:29 WBC RBC Hgb Hct MCV MCH MCHC RDW Std Deviation RDW Coeff of Jaylin Plt Count MPV Immature Gran % (Auto) Neut % (Auto) Lymph % (Auto) [place] % (Auto) Eos % (Auto) Baso % (Auto) Absolute Neuts (auto) Absolute Lymphs (auto) Nucleated RBC % PT INR APTT Sodium Potassium Chloride Carbon Dioxide Anion Gap BUN Creatinine Estim Creat Clear Calc Est GFR (MDRD) Af Amer Est GFR (MDRD) Non-Af BUN/Creatinine Ratio Glucose Serum Osmolality 253 L Lactic Acid 1.6 Calcium Total Bilirubin AST ALT Alkaline Phosphatase Total Protein Albumin Globulin Albumin/Globulin Ratio TSH Cortisol 18.50 Urine Color Urine Clarity Urine pH Ur Specific [place] Urine Protein Urine Glucose (UA) Urine Ketones Urine Occult Blood Urine Nitrite Urine Bilirubin Urine Urobilinogen Ur Leukocyte Esterase Urine RBC Urine WBC Ur Squamous Epith Cells Urine Bacteria Urine Mucus Urine Osmolality Ur Random Sodium 01/24/19 01/24/19 01/24/19 18:29 18:45 18:45 WBC RBC Hgb Hct MCV MCH MCHC RDW Std Deviation RDW Coeff of Jaylin Plt Count MPV Immature Gran % (Auto) Neut % (Auto) Lymph % (Auto) [place] % (Auto) Eos % (Auto) Baso % (Auto) Absolute Neuts (auto) Absolute Lymphs (auto) Nucleated RBC % PT INR APTT Sodium Potassium Chloride Carbon Dioxide Anion Gap BUN Creatinine Estim Creat Clear Calc Est GFR (MDRD) Af Amer Est GFR (MDRD) Non-Af BUN/Creatinine Ratio Glucose Serum Osmolality Lactic Acid Calcium Total Bilirubin AST ALT Alkaline Phosphatase Total Protein Albumin Globulin Albumin/Globulin Ratio TSH 0.89 Cortisol Urine Color Yellow Urine Clarity Cloudy Urine pH 8.0 Ur Specific [place] 1.010 Urine Protein 30 H Urine Glucose (UA) 250 H Urine Ketones 15 H Urine Occult Blood 250 H Urine Nitrite Negative Urine Bilirubin Negative Urine Urobilinogen Normal Ur Leukocyte Esterase 100 H Urine RBC > 100 SEEN Urine WBC 5-10 SEEN Ur Squamous Epith Cells 0 SEEN Urine Bacteria 0 SEEN Urine Mucus 0 SEEN Urine Osmolality 614 Ur Random Sodium 01/24/19 01/24/19 01/25/19 18:45 21:53 02:00 WBC RBC Hgb Hct MCV MCH MCHC RDW Std Deviation RDW Coeff of Jaylin Plt Count MPV Immature Gran % (Auto) Neut % (Auto) Lymph % (Auto) [place] % (Auto) Eos % (Auto) Baso % (Auto) Absolute Neuts (auto) Absolute Lymphs (auto) Nucleated RBC % PT INR APTT Sodium 120 L 124 L Potassium Chloride Carbon Dioxide Anion Gap BUN Creatinine Estim Creat Clear Calc Est GFR (MDRD) Af Amer Est GFR (MDRD) Non-Af BUN/Creatinine Ratio Glucose Serum Osmolality Lactic Acid Calcium Total Bilirubin AST ALT Alkaline Phosphatase Total Protein Albumin Globulin Albumin/Globulin Ratio TSH Cortisol Urine Color Urine Clarity Urine pH Ur Specific [place] Urine Protein Urine Glucose (UA) Urine Ketones Urine Occult Blood Urine Nitrite Urine Bilirubin Urine Urobilinogen Ur Leukocyte Esterase Urine RBC Urine WBC Ur Squamous Epith Cells Urine Bacteria Urine Mucus Urine Osmolality Ur Random Sodium 61 01/25/19 01/25/19 02:00 05:53 WBC 10.6 RBC 3.15 L Hgb 10.0 L Hct 29.3 L MCV 93.0 MCH 31.7 MCHC 34.1 RDW Std Deviation 41.8 RDW Coeff of Jaylin 12.4 Plt Count 222 MPV 9.5 Immature Gran % (Auto) 0.300 Neut % (Auto) 74.7 H Lymph % (Auto) 16.6 L [place] % (Auto) 7.5 Eos % (Auto) 0.7 Baso % (Auto) 0.2 Absolute Neuts (auto) 7.9 H Absolute Lymphs (auto) 1.76 Nucleated RBC % 0 PT INR APTT Sodium 128 L Potassium Chloride Carbon Dioxide Anion Gap BUN Creatinine Estim Creat Clear Calc Est GFR (MDRD) Af Amer Est GFR (MDRD) Non-Af BUN/Creatinine Ratio Glucose Serum Osmolality Lactic Acid Calcium Total Bilirubin AST ALT Alkaline Phosphatase Total Protein Albumin Globulin Albumin/Globulin Ratio TSH Cortisol Urine Color Urine Clarity Urine pH Ur Specific [place] Urine Protein Urine Glucose (UA) Urine Ketones Urine Occult Blood Urine Nitrite Urine Bilirubin Urine Urobilinogen Ur Leukocyte Esterase Urine RBC Urine WBC Ur Squamous Epith Cells Urine Bacteria Urine Mucus Urine Osmolality Ur Random Sodium POC Glucose 01/25/19 01/25/19 05:38 00:12 POC Glucose 125 H 150 H Clinical Impression(s) from Imaging Studies Brain CT 01/24/19 18:26 IMPRESSION: No acute intracranial findings. Electronically Signed: Ashok Kelleywer, at 19:36 EDT Tel , Service support , Chest X-Ray 01/24/19 18:40 IMPRESSION: [Negative chest radiograph.] Electronically Signed: Ashok Kelleywer, at 18:58 EDT Tel , Service support , Assessment/Plan Active and Suspected Problems (Last Reviewed 01/25/19 @ 06:45 by Narda Dang) Hyponatremia (Acute) Facial twitching (Acute) Change in mental status (Acute) Hyperglycemia due to type 2 diabetes mellitus (Acute) S/P TURP (status post transurethral resection of prostate) (Acute) RECOMMENDATIONS: 1. Clarify CODE STATUS 2. Continue normal saline 3. Sliding scale insulin only 4. Likely okay to discontinue Keppra from my perspective 5. Stop checking every 4 sodiums after sodium greater than 130 IMPRESSIONS: 1. Acute encephalopathy secondary to hyponatremia Patient reportedly was hypovolemic on presentation per hospitalist. Patient appears to be euvolemic at this time. 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 Patient did have some fidgeting and twitching noted, which may be secondary to patient's sodium level. This has improved. Likely okay to discontinue Keppra from my perspective. If patient is to be treated aggressively, EEG would be indicated. However, if comfort measures are being requested, feeding could be initiated and MRI and EEG would not be indicated. Unclear temporal relationship of TURP. TURP can lead to hyponatremia. Patient also reportedly is taken a lot of free water, but details are unclear. 2. Recent TURP with abnormal urinalysis Patient does have occult blood and leukocyte esterase, which would be expected if TURP has been completed recently. Patient was given antibiotics for possible UTI. Urine culture is currently pending. Patient does have a Solomon catheter in place. 3. Hypertension/diabetes mellitus/advanced age/poor history Complicates care, management, recovery and prognosis. Okay to continue with baseline medications from my perspective. Metformin is typically not indicated at these doses given patient's age and calculated GFR. Code Visit Inpatient E&M: 32169 Init Hosp L3
--- NOTE | 2019-01-25 08:27 | PN_ITS ---
Patient Problems: Active and Suspected Problems (Last Reviewed 01/25/19 @ 06:45 by Narda Dang) Hyponatremia (Acute) Facial twitching (Acute) Change in mental status (Acute) Hyperglycemia due to type 2 diabetes mellitus (Acute) S/P TURP (status post transurethral resection of prostate) (Acute) Vitals/I&O's: Vital Signs Temp Pulse Resp BP Pulse Ox 98.2 F 52 L 13 99/51 L 99 01/25/19 04:00 01/25/19 07:00 01/25/19 07:00 01/25/19 07:00 01/25/19 07:00 Oxygen Delivery Method Room Air Weight: 70.2 kg Body Mass Index (BMI) 24.2 Finger Stick Blood Glucose 212 Intake and Output for Last 24 Hours 01/23/19 01/24/19 01/25/19 23:59 23:59 23:59 Intake Total 687 / 687 Output Total 2925 / 2925 Balance -2238 / -2238 Laboratory Results 01/24/19 18:29: WBC 11.1 H, RBC 3.11 L, Hgb 10.0 L, Hct 29.1 L, MCV 93.6, MCH 32.2 H, MCHC 34.4, RDW Std Deviation 42.8, RDW Coeff of Jaylin 12.5, Plt Count 222, MPV 9.2, Immature Gran % (Auto) 0.600, Neut % (Auto) 78.7 H, Lymph % (Auto) 12.6 L, [place] % (Auto) 7.3, Eos % (Auto) 0.5, Baso % (Auto) 0.3, Absolute Neuts (auto) 8.7 H, Absolute Lymphs (auto) 1.40, Nucleated RBC % 0 01/24/19 18:29: PT 13.6, INR 1.1, APTT 29.7 01/24/19 18:29: Sodium 118 L*, Potassium 4.0, Chloride 84 L, Carbon Dioxide 26.0, Anion Gap 8, BUN 21 H, Creatinine 1.25, Estim Creat Clear Calc 48.33, Est GFR (MDRD) Af Amer 71, Est GFR (MDRD) Non-Af 59 L, BUN/Creatinine Ratio 16.8, Glucose 193 H, Calcium 8.0 L, Total Bilirubin 0.50, AST 12 L, ALT 15 L, Alkaline Phosphatase 50, Total Protein 6.3 L, Albumin 3.6, Globulin 2.7, Albumin/Globulin Ratio 1.3 01/24/19 18:29: Lactic Acid 1.6 01/24/19 18:29: Cortisol 18.50 01/24/19 18:29: Serum Osmolality 253 L 01/24/19 18:29: TSH 0.89 01/24/19 18:45: Urine Color Yellow, Urine Clarity Cloudy, Urine pH 8.0, Ur Specific [place] 1.010, Urine Protein 30 H, Urine Glucose (UA) 250 H, Urine Ketones 15 H, Urine Occult Blood 250 H, Urine Nitrite Negative, Urine Bilirubin Negative, Urine Urobilinogen Normal, Ur Leukocyte Esterase 100 H, Urine RBC > 10 0 SEEN, Urine WBC 5-10 SEEN, Ur Squamous Epith Cells 0 SEEN, Urine Bacteria 0 SEEN, Urine Mucus 0 SEEN 01/24/19 18:45: Urine Osmolality 614 01/24/19 18:45: Ur Random Sodium 61 01/24/19 21:53: Sodium 120 L 01/25/19 00:12: POC Glucose 150 H 01/25/19 02:00: Sodium 124 L 01/25/19 02:00: WBC 10.6, RBC 3.15 L, Hgb 10.0 L, Hct 29.3 L, MCV 93.0, MCH 31.7, MCHC 34.1, RDW Std Deviation 41.8, RDW Coeff of Jaylin 12.4, Plt Count 222, MPV 9.5, Immature Gran % (Auto) 0.300, Neut % (Auto) 74.7 H, Lymph % (Auto) 16.6 L, [place] % (Auto) 7.5, Eos % (Auto) 0.7, Baso % (Auto) 0.2, Absolute Neuts (auto) 7.9 H, Absolute Lymphs (auto) 1.76, Nucleated RBC % 0 01/25/19 05:38: POC Glucose 125 H 01/25/19 05:53: Sodium 128 L Current Medications Acetaminophen (Tylenol) 650 mg PO Q6H PRN PRN PRN Reason: Mild Pain (1-3)/Temp > 100.7 F Dextrose (D50w Syringe) 0 gm IV X1 PRN; Protocol PRN Reason: Hypoglycemia Enoxaparin Sodium (Lovenox) 40 mg SC DAILY@1000 MAT Glucagon () 1 mg IM .X1 PRN PRN Reason: Hypoglycemia Hydralazine HCl (Apresoline Iv) 5 mg IV Q4H PRN PRN PRN Reason: SBP > 160 Sodium Chloride () 250 mls @ 15 mls/hr IV .[id number] PRN PRN Reason: SALINE FLUSH Ceftriaxone Sodium (Rocephin) 1 gm in 50 mls @ 100 mls/hr IV Q24@2200 MAT Sodium Chloride (Sodium Chloride 3%) 500 mls @ 50 mls/hr IV .Q10H MAT Last Admin: 01/24/19 23:38 Dose: Not Given Documented by: Sodium Chloride () 1,000 mls @ 75 mls/hr IV .[id number] MAT Last Admin: 01/25/19 02:58 Dose: 75 mls/hr Documented by: Insulin Human Lispro (Humalog Kwikpen (Bkc)) 0 unit SC Q6 MAT; Protocol Last Admin: 01/25/19 05:41 Dose: Not Given Documented by: Ondansetron HCl (Zofran) 4 mg IV Q8H PRN PRN PRN Reason: NAUSEA/VOMITING Sodium Chloride () 10 - 40 ml IV UD PRN PRN Reason: SALINE FLUSH Medical Necessity - Tobacco Use Smoking Status: Former smoker Tobacco Use: Cigarettes, Pipe Assessment/Plan All Active Problems (Last Reviewed 01/25/19 @ 06:45 by Narda Dang) Hyponatremia (Acute) Facial twitching (Acute) Change in mental status (Acute) Hyperglycemia due to type 2 diabetes mellitus (Acute) S/P TURP (status post transurethral resection of prostate) (Acute)
--- NOTE | 2019-01-25 10:35 | CASEMGMT ---
Addendum entered by Landen Piña 01/25/19 11:05: Discussed continuing hospital care @ [facility] under Medicare or transferring to [facility]. Pt states he does not wish to transfer to [facility] and understands Medicare will be billed for stay @ [facility]. -Declination to transfer to [place] signed and faxed to [facility] with clinical. Original Note: RN CM Assessment Presentation: Hyponatremia. NA 118. Intro role of CM and purpose of RN CM assessment to patient in room. Pt is awake and alert, has some memory issues at this time, but able to participate in assessment. Demographics, PCP verified. Pt is agreeable to call daughter for verification and further clarification on assessment, however no answer to call. [facility]: [facility], [place] or [facility] for short term prescriptions. Insurance: [facility], [place] Benefits Prescription Benefit: yes LNOK: Daughter Faustina Dior Living Arrangements: Lives in mobile home. Daughter lives with pt. Pt states he is independent in ADL's, shares cooking responsibility with daughter. Transportation: Pt states he drives, but daughter can assist. DME: pt states he does not use equipment @ home but has DME from his ( 3 years ago). HHC: None Patient DC goals: Home DC PLAN: anticipate Home with family support. PT/OT evaluations pending.RN CM will continue to follow, attempt to contact daughter to include her in dc planning. Pari BROOKS RN ACM
[2019-01-25 10:52] LABS: Anion Gap 3 (5-15); BUN 16 mg/dL (7-18); BUN/Creat Ratio 13.7 RATIO (10-20); Calcium,Total 8.1 mg/dL (8.5-10.1); Chloride 99 mmol/L (98-107); Creatinine, Serum 1.17 mg/dL (0.70-1.30); EST Glomerular Filtration Rate 64 mL/min (>60); Est Glom Filt Rate - Afr Amer 77 mL/min (>60); Estimated Creatinine Clearance 47.08 ml/min; Glucose 123 mg/dL (74-106); Potassium 4.2 mmol/L (3.5-5.1); Sodium Level 131 mmol/L (136-145)
[2019-01-25] MEDS: Enoxaparin 40 MG/0.4 ML Syringe SC (10:55)
[2019-01-25] MEDS: 0.9% NaCl Peripheral Flush Adult/Peds IV (10:55)
[2019-01-25 12:00] LABS: Bedside Glucose 126 mg/dL (70-110)
--- NOTE | 2019-01-25 14:01 | CON.PCM_ITS ---
Problem List (1) Hyponatremia Status: Acute Consultation - Renal 01/25/19 PCP/ Referring MD: Requesting physician: Dr Redman Primary care physician: [facility] Reason for Consultation:: Hyponatremia - History of Present Illness History of Present Illness: The patient is a 78 year old M who presented to the hospital yesterday with complaints of twitching. Renal consulted for hyponatremia. Primary doctor is with [place]. He was recently diagnosed with BPH and had a TURP at [facility] with Dr. chicas. Apparently developed postoperative urinary retention. Was told to drink lots of fluids so that he can void without a catheter. As per daughter at bedside he ended up drinking almost 6 to 8 gallons of water yesterday. Yesterday evening he started having confusion, tremors, twitching and was brought into the ER. He was found to have hyponatremia with a sodium of 118. He was placed on hypertonic saline overnight followed by normal saline. Right now he is off fluids completely. Serum sodium is now at 131. No complaints. Solomon catheter in place. - Allergies Allergies: Allergies No Known Allergies Allergy (Verified 01/24/19 18:34) - Current Medications Current Medications: Current Medications Acetaminophen (Tylenol) 650 mg PO Q6H PRN PRN PRN Reason: Mild Pain (1-3)/Temp > 100.7 F Dextrose (D50w Syringe) 0 gm IV X1 PRN; Protocol PRN Reason: Hypoglycemia Enoxaparin Sodium (Lovenox) 40 mg SC DAILY@1000 MAT Last Admin: 01/25/19 10:55 Dose: 40 mg Documented by: Glucagon () 1 mg IM .X1 PRN PRN Reason: Hypoglycemia Sodium Chloride () 250 mls @ 15 mls/hr IV .[id number] PRN PRN Reason: SALINE FLUSH Ceftriaxone Sodium (Rocephin) 1 gm in 50 mls @ 100 mls/hr IV Q24@2200 MAT Insulin Human Lispro (Humalog Kwikpen (Bkc)) 0 unit SC Q6 MAT; Protocol Last Admin: 01/25/19 12:55 Dose: Not Given Documented by: Ondansetron HCl (Zofran) 4 mg IV Q8H PRN PRN PRN Reason: NAUSEA/VOMITING Sodium Chloride () 10 - 40 ml IV UD PRN PRN Reason: SALINE FLUSH Last Admin: 01/25/19 10:55 Dose: 10 ml Documented by: - Social History Smoking Status: Former smoker Alcohol: None Drugs: None - Family History Maternal History Items: Cancer Paternal History Items: Diabetes, Heart Disease, - - His father had amputation of his leg. Review of Systems Constitutional: Denies: Chills, Fever, Weight Change HEENT: Denies: Head Aches, Sinus Congestion, Sinus Drainage Cardiovascular: Denies: Chest Pain, Palpitations Respiratory: Denies: Cough, Shortness of breath at rest, Sputum production Gastrointestinal: Denies: Abdominal Pain, Nausea, Vomiting Genitourinary: Denies: Dysuria Musculoskeletal: Denies: Joint Pain, Joint Tenderness Skin: Denies: Rash, Wounds Neurological: Denies: Numbness, Tingling, Focal weakness Psychiatric: Denies: Anxiety, Depression, Homicidal Ideations, Suicidal Ideatio ns Hematologic/ Lymphatic: Denies: Easy Bruising, Easy Bleeding Patient Problems: Active and Suspected Problems (Last Reviewed 01/25/19 @ 06:45 by Narda Dang) Hyponatremia (Acute) Facial twitching (Acute) Change in mental status (Acute) Hyperglycemia due to type 2 diabetes mellitus (Acute) S/P TURP (status post transurethral resection of prostate) (Acute) - Physical Exam General: Alert, Oriented x3, Cooperative HEENT: Atraumatic, PERRLA, EOMI, Normocephalic Neck: Supple, No JVD, Negative Carotid Bruits Lungs: Clear to auscultation, Normal air movement Cardiovascular: Regular rate, No murmurs Abdomen: Bowel Sounds Present, Soft, Non Tender Extremities: No edema, Capillary Refill Less than 3 Seconds Skin: No rashes, No breakdown Musculoskeletal: No Tenderness to Palpation of Joints or Extremities Neurological: Cranial nerves II-XII grossly intact Psych/Mental Status: Normal Affect, Appropriate Vital Signs Temp Pulse Resp BP Pulse Ox 97.7 F L 76 15 88/67 L 100 01/25/19 12:00 01/25/19 13:00 01/25/19 13:00 01/25/19 13:00 01/25/19 13:00 Oxygen Delivery Method Room Air Weight: 70.2 kg Body Mass Index (BMI) 24.2 Finger Stick Blood Glucose 212 Intake and Output for Last 24 Hours 01/23/19 01/24/19 01/25/19 23:59 23:59 23:59 Intake Total 687 / 687 Output Total 2925 / 2925 Balance -2238 / -2238 Laboratory Tests Past 24 Hrs 01/24/19 01/24/19 01/24/19 18:29 18:29 18:29 WBC 11.1 H RBC 3.11 L Hgb 10.0 L Hct 29.1 L MCV 93.6 MCH 32.2 H MCHC 34.4 RDW Std Deviation 42.8 RDW Coeff of Jaylin 12.5 Plt Count 222 MPV 9.2 Immature Gran % (Auto) 0.600 Neut % (Auto) 78.7 H Lymph % (Auto) 12.6 L [place] % (Auto) 7.3 Eos % (Auto) 0.5 Baso % (Auto) 0.3 Absolute Neuts (auto) 8.7 H Absolute Lymphs (auto) 1.40 Nucleated RBC % 0 PT 13.6 INR 1.1 APTT 29.7 Sodium 118 L* Potassium 4.0 Chloride 84 L Carbon Dioxide 26.0 Anion Gap 8 BUN 21 H Creatinine 1.25 Estim Creat Clear Calc 48.33 Est GFR (MDRD) Af Amer 71 Est GFR (MDRD) Non-Af 59 L BUN/Creatinine Ratio 16.8 Glucose 193 H Serum Osmolality Lactic Acid Calcium 8.0 L Total Bilirubin 0.50 AST 12 L ALT 15 L Alkaline Phosphatase 50 Total Protein 6.3 L Albumin 3.6 Globulin 2.7 Albumin/Globulin Ratio 1.3 TSH Cortisol Urine Color Urine Clarity Urine pH Ur Specific [place] Urine Protein Urine Glucose (UA) Urine Ketones Urine Occult Blood Urine Nitrite Urine Bilirubin Urine Urobilinogen Ur Leukocyte Esterase Urine RBC Urine WBC Ur Squamous Epith Cells Urine Bacteria Urine Mucus Urine Osmolality Ur Random Sodium 01/24/19 01/24/19 01/24/19 18:29 18:29 18:29 WBC RBC Hgb Hct MCV MCH MCHC RDW Std Deviation RDW Coeff of Jaylin Plt Count MPV Immature Gran % (Auto) Neut % (Auto) Lymph % (Auto) [place] % (Auto) Eos % (Auto) Baso % (Auto) Absolute Neuts (auto) Absolute Lymphs (auto) Nucleated RBC % PT INR APTT Sodium Potassium Chloride Carbon Dioxide Anion Gap BUN Creatinine Estim Creat Clear Calc Est GFR (MDRD) Af Amer Est GFR (MDRD) Non-Af BUN/Creatinine Ratio Glucose Serum Osmolality 253 L Lactic Acid 1.6 Calcium Total Bilirubin AST ALT Alkaline Phosphatase Total Protein Albumin Globulin Albumin/Globulin Ratio TSH Cortisol 18.50 Urine Color Urine Clarity Urine pH Ur Specific [place] Urine Protein Urine Glucose (UA) Urine Ketones Urine Occult Blood Urine Nitrite Urine Bilirubin Urine Urobilinogen Ur Leukocyte Esterase Urine RBC Urine WBC Ur Squamous Epith Cells Urine Bacteria Urine Mucus Urine Osmolality Ur Random Sodium 01/24/19 01/24/19 01/24/19 18:29 18:45 18:45 WBC RBC Hgb Hct MCV MCH MCHC RDW Std Deviation RDW Coeff of Jaylin Plt Count MPV Immature Gran % (Auto) Neut % (Auto) Lymph % (Auto) [place] % (Auto) Eos % (Auto) Baso % (Auto) Absolute Neuts (auto) Absolute Lymphs (auto) Nucleated RBC % PT INR APTT Sodium Potassium Chloride Carbon Dioxide Anion Gap BUN Creatinine Estim Creat Clear Calc Est GFR (MDRD) Af Amer Est GFR (MDRD) Non-Af BUN/Creatinine Ratio Glucose Serum Osmolality Lactic Acid Calcium Total Bilirubin AST ALT Alkaline Phosphatase Total Protein Albumin Globulin Albumin/Globulin Ratio TSH 0.89 Cortisol Urine Color Yellow Urine Clarity Cloudy Urine pH 8.0 Ur Specific [place] 1.010 Urine Protein 30 H Urine Glucose (UA) 250 H Urine Ketones 15 H Urine Occult Blood 250 H Urine Nitrite Negative Urine Bilirubin Negative Urine Urobilinogen Normal Ur Leukocyte Esterase 100 H Urine RBC > 100 SEEN Urine WBC 5-10 SEEN Ur Squamous Epith Cells 0 SEEN Urine Bacteria 0 SEEN Urine Mucus 0 SEEN Urine Osmolality 614 Ur Random Sodium 01/24/19 01/24/19 01/25/19 18:45 21:53 02:00 WBC RBC Hgb Hct MCV MCH MCHC RDW Std Deviation RDW Coeff of Jaylin Plt Count MPV Immature Gran % (Auto) Neut % (Auto) Lymph % (Auto) [place] % (Auto) Eos % (Auto) Baso % (Auto) Absolute Neuts (auto) Absolute Lymphs (auto) Nucleated RBC % PT INR APTT Sodium 120 L 124 L Potassium Chloride Carbon Dioxide Anion Gap BUN Creatinine Estim Creat Clear Calc Est GFR (MDRD) Af Amer Est GFR (MDRD) Non-Af BUN/Creatinine Ratio Glucose Serum Osmolality Lactic Acid Calcium Total Bilirubin AST ALT Alkaline Phosphatase Total Protein Albumin Globulin Albumin/Globulin Ratio TSH Cortisol Urine Color Urine Clarity Urine pH Ur Specific [place] Urine Protein Urine Glucose (UA) Urine Ketones Urine Occult Blood Urine Nitrite Urine Bilirubin Urine Urobilinogen Ur Leukocyte Esterase Urine RBC Urine WBC Ur Squamous Epith Cells Urine Bacteria Urine Mucus Urine Osmolality Ur Random Sodium 61 01/25/19 01/25/19 01/25/19 02:00 05:53 10:20 WBC 10.6 RBC 3.15 L Hgb 10.0 L Hct 29.3 L MCV 93.0 MCH 31.7 MCHC 34.1 RDW Std Deviation 41.8 RDW Coeff of Jaylin 12.4 Plt Count 222 MPV 9.5 Immature Gran % (Auto) 0.300 Neut % (Auto) 74.7 H Lymph % (Auto) 16.6 L [place] % (Auto) 7.5 Eos % (Auto) 0.7 Baso % (Auto) 0.2 Absolute Neuts (auto) 7.9 H Absolute Lymphs (auto) 1.76 Nucleated RBC % 0 PT INR APTT Sodium 128 L 131 L Potassium 4.2 Chloride 99 Carbon Dioxide 29.0 Anion Gap 3 L BUN 16 Creatinine 1.17 Estim Creat Clear Calc 47.08 Est GFR (MDRD) Af Amer 77 Est GFR (MDRD) Non-Af 64 BUN/Creatinine Ratio 13.7 Glucose 123 H Serum Osmolality Lactic Acid Calcium 8.1 L Total Bilirubin AST ALT Alkaline Phosphatase Total Protein Albumin Globulin Albumin/Globulin Ratio TSH Cortisol Urine Color Urine Clarity Urine pH Ur Specific [place] Urine Protein Urine Glucose (UA) Urine Ketones Urine Occult Blood Urine Nitrite Urine Bilirubin Urine Urobilinogen Ur Leukocyte Esterase Urine RBC Urine WBC Ur Squamous Epith Cells Urine Bacteria Urine Mucus Urine Osmolality Ur Random Sodium POC Glucose 01/25/19 01/25/19 01/25/19 11:56 05:38 00:12 POC Glucose 126 H 125 H 150 H Assessment/Plan All Active Problems (Last Reviewed 01/25/19 @ 06:45 by Narda Dang) Hyponatremia (Acute) Facial twitching (Acute) Change in mental status (Acute) Hyperglycemia due to type 2 diabetes mellitus (Acute) S/P TURP (status post transurethral resection of prostate) (Acute) Hyponatremia. Sodium was 118 on admission. Now up to 131. I reviewed the records from [facility] [email or web address] system. Prior to the surgery his sodium was normal. He was asymptomatic up until yesterday afternoon right before he started drinking water. Sodium has rapidly improved to 131. All of this history is consistent with severe hyponatremia related to polydipsia. His sodium also improved rapidly with very limited amount of fluids. This is also consistent with primary polydipsia related hyponatremia. His urines osmolality and sodium was somewhat high and this is not consistent with polydipsia. Overall urine output is almost 5 L within the last 24 hours. Even though his sodium did not increase quite a bit, given his prior sodium values were normal and mental status was normal I would resume sodium only went down yesterday. Since its acute hyponatremia there is no need to compensate for rapid correction. DC all fluids. No need for frequent sodium checks. He will likely go back to normal sodium by tomorrow. Discussed with family Discussed with hospitalist
[2019-01-25 16:30] LABS: Bedside Glucose 120 mg/dL (70-110)
[2019-01-25 21:41] LABS: Bedside Glucose 167 mg/dL (70-110)
[2019-01-25] MEDS: Insulin Lispro 100 UNIT/ML INSULN.PEN SC (21:42)
[2019-01-25] MEDS: Ceftriaxone 1 GM/50 ML BAG IV (21:57)
[2019-01-26 03:30] VITALS: BP 94/35; PULSE 60; RESP 16; TEMP 37.1; O2SAT 98
[2019-01-26 03:39] VITALS: PULSE 55
[2019-01-26 06:40] LABS: Bedside Glucose 107 mg/dL (70-110)
[2019-01-26 06:48] VITALS: PULSE 58
[2019-01-26 07:37] LABS: Anion Gap 7 (5-15); BUN 25 mg/dL (7-18); BUN/Creat Ratio 18.8 RATIO (10-20); Calcium,Total 8.3 mg/dL (8.5-10.1); Chloride 107 mmol/L (98-107); Creatinine, Serum 1.33 mg/dL (0.70-1.30); EST Glomerular Filtration Rate 55 mL/min (>60); Est Glom Filt Rate - Afr Amer 66 mL/min (>60); Estimated Creatinine Clearance 40.35 ml/min; Glucose 93 mg/dL (74-106); Potassium 4.1 mmol/L (3.5-5.1); Sodium Level 141 mmol/L (136-145)
[2019-01-26 07:45] VITALS: O2SAT 94
--- NOTE | 2019-01-26 08:04 | PN_ITS ---
Subjective: Patient did okay overnight. No acute issues were reported. Patient continues to request to go home. General: Alert, Oriented x3, Cooperative, No apparent distress, - - Slightly cantankerous, but appropriate HEENT: Atraumatic, PERRLA, EOMI, Normocephalic, - - No scleral icterus or injection noted. Oral: Moist Mucosa, No Gingival or Mucosal Lesions/ Ulcerations, - - No facial twitching appreciated. Neck: Supple, No JVD, No Nodes, Trachea Midline Lungs: Clear to auscultation, Normal air movement, No rhonchi, No wheeze, No rales, - - Symmetric expansion. No dullness to percussion. Cardiovascular: Regular rate, Regular Rhythm, Normal S1, Normal S2, No murmurs, No rub noted, No Gallop Abdomen: Bowel Sounds Present, Soft, Non Tender, Non-Distended Extremities: No clubbing, No cyanosis, No edema, Capillary Refill Less than 3 Seconds Skin: - - No change from previous Musculoskeletal: No Tenderness to Palpation of Joints or Extremities Lymphatic: No Cervical, Supraclavicular, or Inguinal Adenopathy Neurological: Cranial nerves II-XII grossly intact, Neuro grossly intact, Motor Exam 5/5 strength throughout Psych/Mental Status: Flat Affect Vital Signs Temp Pulse Resp BP Pulse Ox 37.1 C 58 L 16 94/35 L 98 01/26/19 03:30 01/26/19 06:48 01/26/19 03:30 01/26/19 03:30 01/26/19 03:30 Oxygen Delivery Method Room Air Weight: 64.4 kg Body Mass Index (BMI) 24.2 Finger Stick Blood Glucose 212 Intake and Output for Last 24 Hours 01/24/19 01/25/19 01/26/19 23:59 23:59 23:59 Intake Total 1737 / 1737 240 / 240 Output Total 6825 / 6825 1225 / 1225 Balance -5088 / -5088 -985 / -985 Labs (Last 48 Hours) 01/24/19 01/24/19 01/24/19 18:29 18:29 18:29 WBC 11.1 H RBC 3.11 L Hgb 10.0 L Hct 29.1 L MCV 93.6 MCH 32.2 H MCHC 34.4 RDW Std Deviation 42.8 RDW Coeff of Jaylin 12.5 Plt Count 222 MPV 9.2 Immature Gran % (Auto) 0.600 Neut % (Auto) 78.7 H Lymph % (Auto) 12.6 L [place] % (Auto) 7.3 Eos % (Auto) 0.5 Baso % (Auto) 0.3 Absolute Neuts (auto) 8.7 H Absolute Lymphs (auto) 1.40 Nucleated RBC % 0 PT 13.6 INR 1.1 APTT 29.7 Sodium 118 L* Potassium 4.0 Chloride 84 L Carbon Dioxide 26.0 Anion Gap 8 BUN 21 H Creatinine 1.25 Estim Creat Clear Calc 48.33 Est GFR (MDRD) Af Amer 71 Est GFR (MDRD) Non-Af 59 L BUN/Creatinine Ratio 16.8 Glucose 193 H Serum Osmolality Lactic Acid Calcium 8.0 L Total Bilirubin 0.50 AST 12 L ALT 15 L Alkaline Phosphatase 50 Total Protein 6.3 L Albumin 3.6 Globulin 2.7 Albumin/Globulin Ratio 1.3 TSH Cortisol Urine Color Urine Clarity Urine pH Ur Specific [place] Urine Protein Urine Glucose (UA) Urine Ketones Urine Occult Blood Urine Nitrite Urine Bilirubin Urine Urobilinogen Ur Leukocyte Esterase Urine RBC Urine WBC Ur Squamous Epith Cells Urine Bacteria Urine Mucus Urine Osmolality Ur Random Sodium POC Glucose 01/24/19 01/24/19 01/24/19 18:29 18:29 18:29 WBC RBC Hgb Hct MCV MCH MCHC RDW Std Deviation RDW Coeff of Jaylin Plt Count MPV Immature Gran % (Auto) Neut % (Auto) Lymph % (Auto) [place] % (Auto) Eos % (Auto) Baso % (Auto) Absolute Neuts (auto) Absolute Lymphs (auto) Nucleated RBC % PT INR APTT Sodium Potassium Chloride Carbon Dioxide Anion Gap BUN Creatinine Estim Creat Clear Calc Est GFR (MDRD) Af Amer Est GFR (MDRD) Non-Af BUN/Creatinine Ratio Glucose Serum Osmolality 253 L Lactic Acid 1.6 Calcium Total Bilirubin AST ALT Alkaline Phosphatase Total Protein Albumin Globulin Albumin/Globulin Ratio TSH Cortisol 18.50 Urine Color Urine Clarity Urine pH Ur Specific [place] Urine Protein Urine Glucose (UA) Urine Ketones Urine Occult Blood Urine Nitrite Urine Bilirubin Urine Urobilinogen Ur Leukocyte Esterase Urine RBC Urine WBC Ur Squamous Epith Cells Urine Bacteria Urine Mucus Urine Osmolality Ur Random Sodium POC Glucose 01/24/19 01/24/19 01/24/19 18:29 18:45 18:45 WBC RBC Hgb Hct MCV MCH MCHC RDW Std Deviation RDW Coeff of Jaylin Plt Count MPV Immature Gran % (Auto) Neut % (Auto) Lymph % (Auto) [place] % (Auto) Eos % (Auto) Baso % (Auto) Absolute Neuts (auto) Absolute Lymphs (auto) Nucleated RBC % PT INR APTT Sodium Potassium Chloride Carbon Dioxide Anion Gap BUN Creatinine Estim Creat Clear Calc Est GFR (MDRD) Af Amer Est GFR (MDRD) Non-Af BUN/Creatinine Ratio Glucose Serum Osmolality Lactic Acid Calcium Total Bilirubin AST ALT Alkaline Phosphatase Total Protein Albumin Globulin Albumin/Globulin Ratio TSH 0.89 Cortisol Urine Color Yellow Urine Clarity Cloudy Urine pH 8.0 Ur Specific [place] 1.010 Urine Protein 30 H Urine Glucose (UA) 250 H Urine Ketones 15 H Urine Occult Blood 250 H Urine Nitrite Negative Urine Bilirubin Negative Urine Urobilinogen Normal Ur Leukocyte Esterase 100 H Urine RBC > 100 SEEN Urine WBC 5-10 SEEN Ur Squamous Epith Cells 0 SEEN Urine Bacteria 0 SEEN Urine Mucus 0 SEEN Urine Osmolality 614 Ur Random Sodium POC Glucose 01/24/19 01/24/19 01/25/19 18:45 21:53 00:12 WBC RBC Hgb Hct MCV MCH MCHC RDW Std Deviation RDW Coeff of Jaylin Plt Count MPV Immature Gran % (Auto) Neut % (Auto) Lymph % (Auto) [place] % (Auto) Eos % (Auto) Baso % (Auto) Absolute Neuts (auto) Absolute Lymphs (auto) Nucleated RBC % PT INR APTT Sodium 120 L Potassium Chloride Carbon Dioxide Anion Gap BUN Creatinine Estim Creat Clear Calc Est GFR (MDRD) Af Amer Est GFR (MDRD) Non-Af BUN/Creatinine Ratio Glucose Serum Osmolality Lactic Acid Calcium Total Bilirubin AST ALT Alkaline Phosphatase Total Protein Albumin Globulin Albumin/Globulin Ratio TSH Cortisol Urine Color Urine Clarity Urine pH Ur Specific [place] Urine Protein Urine Glucose (UA) Urine Ketones Urine Occult Blood Urine Nitrite Urine Bilirubin Urine Urobilinogen Ur Leukocyte Esterase Urine RBC Urine WBC Ur Squamous Epith Cells Urine Bacteria Urine Mucus Urine Osmolality Ur Random Sodium 61 POC Glucose 150 H 01/25/19 01/25/19 01/25/19 02:00 02:00 05:38 WBC 10.6 RBC 3.15 L Hgb 10.0 L Hct 29.3 L MCV 93.0 MCH 31.7 MCHC 34.1 RDW Std Deviation 41.8 RDW Coeff of Jaylin 12.4 Plt Count 222 MPV 9.5 Immature Gran % (Auto) 0.300 Neut % (Auto) 74.7 H Lymph % (Auto) 16.6 L [place] % (Auto) 7.5 Eos % (Auto) 0.7 Baso % (Auto) 0.2 Absolute Neuts (auto) 7.9 H Absolute Lymphs (auto) 1.76 Nucleated RBC % 0 PT INR APTT Sodium 124 L Potassium Chloride Carbon Dioxide Anion Gap BUN Creatinine Estim Creat Clear Calc Est GFR (MDRD) Af Amer Est GFR (MDRD) Non-Af BUN/Creatinine Ratio Glucose Serum Osmolality Lactic Acid Calcium Total Bilirubin AST ALT Alkaline Phosphatase Total Protein Albumin Globulin Albumin/Globulin Ratio TSH Cortisol Urine Color Urine Clarity Urine pH Ur Specific [place] Urine Protein Urine Glucose (UA) Urine Ketones Urine Occult Blood Urine Nitrite Urine Bilirubin Urine Urobilinogen Ur Leukocyte Esterase Urine RBC Urine WBC Ur Squamous Epith Cells Urine Bacteria Urine Mucus Urine Osmolality Ur Random Sodium POC Glucose 125 H 01/25/19 01/25/19 01/25/19 05:53 10:20 11:56 WBC RBC Hgb Hct MCV MCH MCHC RDW Std Deviation RDW Coeff of Jaylin Plt Count MPV Immature Gran % (Auto) Neut % (Auto) Lymph % (Auto) [place] % (Auto) Eos % (Auto) Baso % (Auto) Absolute Neuts (auto) Absolute Lymphs (auto) Nucleated RBC % PT INR APTT Sodium 128 L 131 L Potassium 4.2 Chloride 99 Carbon Dioxide 29.0 Anion Gap 3 L BUN 16 Creatinine 1.17 Estim Creat Clear Calc 47.08 Est GFR (MDRD) Af Amer 77 Est GFR (MDRD) Non-Af 64 BUN/Creatinine Ratio 13.7 Glucose 123 H Serum Osmolality Lactic Acid Calcium 8.1 L Total Bilirubin AST ALT Alkaline Phosphatase Total Protein Albumin Globulin Albumin/Globulin Ratio TSH Cortisol Urine Color Urine Clarity Urine pH Ur Specific [place] Urine Protein Urine Glucose (UA) Urine Ketones Urine Occult Blood Urine Nitrite Urine Bilirubin Urine Urobilinogen Ur Leukocyte Esterase Urine RBC Urine WBC Ur Squamous Epith Cells Urine Bacteria Urine Mucus Urine Osmolality Ur Random Sodium POC Glucose 126 H 01/25/19 01/25/19 01/26/19 16:24 21:34 05:21 WBC RBC Hgb Hct MCV MCH MCHC RDW Std Deviation RDW Coeff of Jaylin Plt Count MPV Immature Gran % (Auto) Neut % (Auto) Lymph % (Auto) [place] % (Auto) Eos % (Auto) Baso % (Auto) Absolute Neuts (auto) Absolute Lymphs (auto) Nucleated RBC % PT INR APTT Sodium 141 Potassium 4.1 Chloride 107 Carbon Dioxide 27.0 Anion Gap 7 BUN 25 H Creatinine 1.33 H Estim Creat Clear Calc 40.35 Est GFR (MDRD) Af Amer 66 Est GFR (MDRD) Non-Af 55 L BUN/Creatinine Ratio 18.8 Glucose 93 Serum Osmolality Lactic Acid Calcium 8.3 L Total Bilirubin AST ALT Alkaline Phosphatase Total Protein Albumin Globulin Albumin/Globulin Ratio TSH Cortisol Urine Color Urine Clarity Urine pH Ur Specific [place] Urine Protein Urine Glucose (UA) Urine Ketones Urine Occult Blood Urine Nitrite Urine Bilirubin Urine Urobilinogen Ur Leukocyte Esterase Urine RBC Urine WBC Ur Squamous Epith Cells Urine Bacteria Urine Mucus Urine Osmolality Ur Random Sodium POC Glucose 120 H 167 H 01/26/19 06:31 WBC RBC Hgb Hct MCV MCH MCHC RDW Std Deviation RDW Coeff of Jaylin Plt Count MPV Immature Gran % (Auto) Neut % (Auto) Lymph % (Auto) [place] % (Auto) Eos % (Auto) Baso % (Auto) Absolute Neuts (auto) Absolute Lymphs (auto) Nucleated RBC % PT INR APTT Sodium Potassium Chloride Carbon Dioxide Anion Gap BUN Creatinine Estim Creat Clear Calc Est GFR (MDRD) Af Amer Est GFR (MDRD) Non-Af BUN/Creatinine Ratio Glucose Serum Osmolality Lactic Acid Calcium Total Bilirubin AST ALT Alkaline Phosphatase Total Protein Albumin Globulin Albumin/Globulin Ratio TSH Cortisol Urine Color Urine Clarity Urine pH Ur Specific [place] Urine Protein Urine Glucose (UA) Urine Ketones Urine Occult Blood Urine Nitrite Urine Bilirubin Urine Urobilinogen Ur Leukocyte Esterase Urine RBC Urine WBC Ur Squamous Epith Cells Urine Bacteria Urine Mucus Urine Osmolality Ur Random Sodium POC Glucose 107 Medical Necessity - Tobacco Use Smoking Status: Former smoker Tobacco Use: Cigarettes, Pipe Assessment/Plan All Active Problems (Last Reviewed 01/25/19 @ 06:45 by Narda Dang) Hyponatremia (Acute) Facial twitching (Acute) Change in mental status (Acute) Hyperglycemia due to type 2 diabetes mellitus (Acute) S/P TURP (status post transurethral resection of prostate) (Acute) RECOMMENDATIONS: 1. Okay to discontinue fluids from my perspective 2. Await results of EEG 3. Okay to discontinue insulin therapy 4. Hemodynamically stable on room air. Will sign off from a critical care perspective IMPRESSIONS: 1. Acute encephalopathy secondary to hyponatremia Patient reportedly was hypovolemic on presentation per hospitalist. Emi rosenberg appears to be euvolemic at this time. 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 Patient did have some fidgeting and twitching noted, which may be secondary to patient's sodium level. This has improved. EEG is still pending. If negative, Keppra can be discontinued. 2. Recent TURP with abnormal urinalysis Patient does have occult blood and leukocyte esterase, which would be expected if TURP has been completed recently. Patient was given antibiotics for possible UTI. Urine culture is currently pending. Patient does have a Solomon catheter in place. 3. Hypertension/diabetes mellitus/advanced age/poor history Complicates care, management, recovery and prognosis. Okay to continue with baseline medications from my perspective. Metformin is typically not indicated at these doses given patient's age and calculated GFR. Code Visit Inpatient E&M: 95581 Subs Hosp L2
[2019-01-26 09:00] VITALS: BP 91/46; PULSE 58; RESP 16; TEMP 37.2; O2SAT 96
--- NOTE | 2019-01-26 10:04 | DCINST_ITS ---
- Discharge Diagnoses Current Active Problems: Current Active and Chronic Problems (Last Reviewed 01/25/19 @ 06:45 by Narda Dang) Hyponatremia (Acute) Facial twitching (Acute) Change in mental status (Acute) Hyperglycemia due to type 2 diabetes mellitus (Acute) S/P TURP (status post transurethral resection of prostate) (Acute) Reason(s) for Visit for Discharge Instructions: Confusion You will use the following diet at home:: Calorie/Carbohydrate Controlled (specify 1200, 1400, etc) - 2000 calories, Cardiac Your food should be the consistency of: Regular Your liquids should be the consistency of: Regular/Thin Discharge Activity: Return to Normal Activity Additional Instructions: Continue to monitor your urine output. Take all your medications as prescribed. Follow-up with your urologist as planned Allergies/Adverse Reactions: Allergies No Known Allergies Allergy (Verified 01/24/19 18:34) Medications to take at Discharge Aspirin [Aspirin, Baby] 81 mg PO DAILY@0800 01/24/19 Cholecalciferol (VIT D3) [Vitamin D3] 1,000 unit PO DAILY 01/24/19 Fosinopril Sodium 10 mg PO DAILY 01/24/19 Glipizide 5 mg PO DAILY 01/24/19 Metformin HCl 850 mg PO BID 01/24/19 Mirtazapine [Remeron] 7.5 mg PO DAILY 01/24/19 Pioglitazone [Actos] 15 mg PO DAILY 01/24/19 Simvastatin 40 mg PO DAILY 01/24/19 Tamsulosin HCl 0.4 mg PO DAILY 01/24/19 Primary Care Physician: Sacha Flores MD [STAFF PHYSICIAN] - Please follow up with your Primary Care Physician in: within 1-2 weeks Test Results: Test results from this visit will be discussed in further detail at your follow- up appointment, if applicable. When: Urologist within 1 week or as scheduled. Proposed Discharge Date: 01/26/19
--- NOTE | 2019-01-26 10:21 | DS.PCM_ITS ---
Discharge Date and Diagnosis Date of Admission: 01/24/19 Date of Discharge: 01/26/19 - Primary Discharge Diagnosis Active and Suspected Problems (Last Reviewed 01/25/19 @ 06:45 by Narda Dang) Acute metabolic encephalopathy, resolved Hyponatremia,resolved Hyperglycemia secondary to type II DM Relative hypotension UTI ruled out Hospital Course and Treatment Imaging Results: Clinical Impression(s) from Imaging Studies Brain CT 01/24/19 18:26 IMPRESSION: No acute intracranial findings. Electronically Signed: Ashok Lamb, at 19:36 EDT Tel , Service support , Chest X-Ray 01/24/19 18:40 IMPRESSION: [Negative chest radiograph.] Electronically Signed: Ashok Lamb, at 18:58 EDT Tel , Service support , Clinical Impression(s) from Imaging Studies Brain CT 01/24/19 18:26 IMPRESSION: No acute intracranial findings. Electronically Signed: Ashok Lamb, at 19:36 EDT Tel , Service support , Chest X-Ray 01/24/19 18:40 IMPRESSION: [Negative chest radiograph.] Electronically Signed: Ashok Labm, at 18:58 EDT Tel , Service support , Nephrology Critical care Operations: None Procedures: None Summary of Care Provided: The patient is a 78 year old M past medical history of BPH status post recent TURP in [facility], hypertension, hyperlipidemia, type II DM who had followed up in his primary urologist office for evaluation for Solomon catheter removal. Patient had undergone the froley removal and was asked to drink some fluids and come back within 6 hours to be evaluated for urinary retention. Patient and his daughter went home, on the way he drunk lots of fluids. A couple of hours later he was found to be fidgety and behaving abnormally. He was confused. He had vomited about 3 times. The daughter noticed some twitching of the face and called EMS. Patient was admitted to the ICU to sodium 118. Serum osmolality was 253, TSH and cortisol level was normal. Urine osmolality was 614, urine sodium was 31. He received IV Keppra for possible seizures and had EEG done. Report was not read at the time of discharge. Patient was also started on 3% hypertonic saline with improvement in his mental status the next day. His sodium improved markedly well by the next day. It was normal at discharge. He was seen by nephrology. Impression was severe hyponatremia secondary to polydipsia. Patient continued to have a Solomon catheter disla in the hospital. He was noted to have intermittent hematuria. This is normal for him. He has a follow-up appointment next week with his urologist. The discharge plan of care was discussed extensively with the patient and with his daughter. Subjective: On the day of discharge, patient was seen and examined. He is alert, oriented x 3. - Physical Exam General: Alert, Oriented x3, Cooperative, No apparent distress HEENT: Atraumatic, PERRLA, EOMI, Normocephalic Oral: Moist Mucosa Neck: Supple Lungs: Clear to auscultation, Normal air movement Cardiovascular: Regular rate, Regular Rhythm, Normal S1, Normal S2, No murmurs Abdomen: Bowel Sounds Present, Soft, Non Tender, Non-Distended, No Hepato- splenomegaly Extremities: No edema Skin: No rashes, No breakdown Musculoskeletal: No Tenderness to Palpation of Joints or Extremities Lymphatic: No Cervical, Supraclavicular, or Inguinal Adenopathy Neurological: Cranial nerves II-XII grossly intact, Neuro grossly intact Psych/Mental Status: Normal Affect, Appropriate Vital Signs Temp Pulse Resp BP Pulse Ox 98.9 F 58 L 16 91/46 L 96 01/26/19 09:00 01/26/19 09:00 01/26/19 09:00 01/26/19 09:00 01/26/19 09:00 Oxygen Delivery Method Room Air Weight: 64.4 kg Body Mass Index (BMI) 24.2 Finger Stick Blood Glucose 212 Intake and Output for Last 24 Hours 01/24/19 01/25/19 01/26/19 23:59 23:59 23:59 Intake Total 1737 / 1737 240 / 240 Output Total 6825 / 6825 1225 / 1225 Balance -5088 / -5088 -985 / -985 Microbiology Past 72 Hours 01/24/19 18:45 Urine Culture - Preliminary Urine Catheter - Catheter Culture exhibits no growth. Laboratory Tests Past 24 Hrs 01/25/19 01/26/19 10:20 05:21 Sodium 131 L 141 Potassium 4.2 4.1 Chloride 99 107 Carbon Dioxide 29.0 27.0 Anion Gap 3 L 7 BUN 16 25 H Creatinine 1.17 1.33 H Estim Creat Clear Calc 47.08 40.35 Est GFR (MDRD) Af Amer 77 66 Est GFR (MDRD) Non-Af 64 55 L BUN/Creatinine Ratio 13.7 18.8 Glucose 123 H 93 Calcium 8.1 L 8.3 L POC Glucose 01/26/19 01/25/19 01/25/19 06:31 21:34 16:24 POC Glucose 107 167 H 120 H 01/25/19 11:56 POC Glucose 126 H Discharge Diet: Low fat/ Low Cholesterol, 2000 mg Sodium Diet, Carb Control Diet Discharge Activity: Return to Normal Activity Home Medications: Medications to take at Discharge Aspirin [Aspirin, Baby] 81 mg PO DAILY@0800 01/24/19 Cholecalciferol (VIT D3) [Vitamin D3] 1,000 unit PO DAILY 01/24/19 Fosinopril Sodium 10 mg PO DAILY 01/24/19 Glipizide 5 mg PO DAILY 01/24/19 Metformin HCl 850 mg PO BID 01/24/19 Mirtazapine [Remeron] 7.5 mg PO DAILY 01/24/19 Pioglitazone [Actos] 15 mg PO DAILY 01/24/19 Simvastatin 40 mg PO DAILY 01/24/19 Tamsulosin HCl 0.4 mg PO DAILY 01/24/19 Primary Care Physician: Sacha Flores MD [STAFF PHYSICIAN] - Please follow up with your Primary Care Physician in: within 1-2 weeks When: Urologist within 1 week or as scheduled. Disposition: Home Minutes spent on discharge:: 35 Patient Condition:: Stable Medical Necessity - Tobacco Use Smoking Status: Former smoker Meaningful Use Info Meaningful Use Diagnoses (Choose all that apply): None applicable Code Visit Inpatient E&M: 44330 Disch Hosp
--- NOTE | 2019-01-28 15:21 | EEG ---
- Electroencephalogram Date of service 01/25/2019 History EEG is being done in this 78 yr M to rule out seizures EEG Description: This is an 18 channel EEG with 10-20 lead placement system. Bipolar montages, and Referential montages were reviewed. Photic stimulation and Hyperventilation were performed. The posterior dominant rhythm is 10 HZ synchronous, symmetric, reacting to eye opening and closing. Photo stimulation elicited normal driving response but no abnormal photoparoxysmal response, Hyperventilation did not elicit any abnormal photoparoxysmal response. Sleep was identified. There is no abnormal background slowing noted. There was no epileptiform discharges or electrographic seizures noted during this recording. Muscle artefact noted in the frontal leads during the recording. EEG Interpretation This is a normal awake and asleep EEG. There is no epileptiform discharges or electrographic seizures noted during the record.
== END 2019-01-26 11:07 | disposition home or self-care (01) | DRG 640 ==
LOC: ED 19:56 → ICU 21:29 → PCU 01-25 17:00
PROVIDERS: Admitting Provider Hospitalist; Emergency Provider Emergency Medicine; Referring Provider Hospitalist; Visit Provider Internal Medicine
DX: E87.1 Hypo-osmolality and hyponatremia (principal); G93.41 Metabolic encephalopathy; E11.65 Type 2 diabetes mellitus with hyperglycemia; I95.9 Hypotension, unspecified; I10 Essential (primary) hypertension; E78.5 Hyperlipidemia, unspecified; Z87.891 Personal history of nicotine dependence; Z90.79 Acquired absence of other genital organ(s); Z79.84 Long term (current) use of oral hypoglycemic drugs
CPT/HCPCS: 36415; 70450; 71045; 80048; 80053; 81001; 82533; 82962; 83605; 83930; 83935; 84295; 84300; 84443; 85025; 85610; 85730; 87040; 87086; 92610; 93005; 95819; 97116; 97162; 97166; 97530; 97802; 99285; J7030; J7040; A4216; J2405

== ENCOUNTER 2023-01-08 14:41 | Emergency (ER) | payer MEDICARE, SELFPAY ==
[2023-01-08 14:44] VITALS: BP 118/92; PULSE 126; RESP 16; TEMP 36.7; O2SAT 100; BMI 24.1
--- NOTE | 2023-01-08 14:50 | CT_ITS ---
STUDY: CT BRAIN WITHOUT CONTRAST REASON FOR EXAM: Male, 82 years old. Change in Mental Status Individualized dose optimization techniques were used for this CT. TECHNIQUE: Transaxial CT imaging of the brain was performed without administration of intravenous contrast material. COMPARISON: 01/24/2019 FINDINGS: There are calcifications noted in the distal vertebral arteries. There are calcifications noted in the cavernous carotid arteries. This is consistent for atherosclerotic disease. Normal calvarium. Normal soft tissues. There is mild cerebral atrophy with widening of the extra-axial spaces and ventricular dilatation. There are areas of decreased attenuation within the white matter tracts of the supratentorial brain, consistent with microvascular disease changes. Normal basal ganglia and thalami. Normal brainstem. There is mild cerebellar atrophy. There is no intracranial hemorrhage. There are no findings of an acute ischemic infarction. Normal visualized paranasal sinuses. ASPECTS Score for Acute Strokes: 03/28 CT/Brain/Head without Contrast IMPRESSION: There are no acute findings. Chronic involutional changes of the brain. Electronically Signed: Emanuel Gongora MD at 16:03 EDT ,
--- NOTE | 2023-01-08 14:50 | EKG12_ITS ---
Test Reason : Blood Pressure : / mmHG Vent. Rate : 111 BPM Atrial Rate : 111 BPM P-R Int : 170 ms QRS Dur : 102 ms QT Int : 330 ms P-R-T Axes : 069 -32 068 degrees QTc Int : 448 ms Sinus tachycardia Left axis deviation Septal infarct , age undetermined Abnormal ECG Confirmed by NATI MOORE, LUZ ([id number]), assignment editor SG NGUYỄN ([id number]) on 01/11/2023 9:08:58 AM Referred By: Confirmed By:LUZ DAMIAN MD
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
--- NOTE | 2023-01-08 15:09 | NURSING ---
[facility] NURSE HERE FOR PATIENT
--- NOTE | 2023-01-08 15:38 | RAD_ITS ---
STUDY: XR Chest 1 View 01/08/2023 3:34 PM REASON FOR EXAM: Male, 82 years old. CHEST PAIN altered MS COMPARISON: 01/24/19 TECHNIQUE: XR Chest 1 View FINDINGS: There is no demonstrated pleural abnormality. Normal heart size. Normal mediastinum. Normal kike. Prominent appearing increased interstitial lung markings. Normal visualized pulmonary arteries. There is atherosclerotic calcification of the aortic arch with tortuosity. There are diffuse degenerative changes of the visualized thoracic spine. There is degenerative osteoarthritis of the bilateral shoulders. There are no acute findings of the upper abdomen. RAD/Chest 1 View (Portable) IMPRESSION: There are no acute findings. Electronically Signed: Emanuel Gongora MD at 15:55 EDT ,
[2023-01-08 15:39] LABS: Absolute Lymphocyte Count 1.18 X10^3/uL (0.83-4.51); Absolute Neutrophil Count 6.8 X10^3/uL (2.0-7.7); Basophil# 0.06 X10^3/uL; Basophil% 0.7 % (0-1); Eosinophil# 0.04 X10^3/uL; Eosinophils% 0.5 % (0-5); Hematocrit 38.5 % (40-54); Hemoglobin 12.6 g/dL (13.0-16.5); Lymphocyte # 1.18 X10^3/ul (0.83-4.51); Lymphocyte % 13.4 % (19-41); Mean Corp Hgb Conc 32.7 g/dL (32-36); Mean Corpuscular Hgb 32.1 pg (27.0-32.0); Mean Corpuscular Volume 98.2 fL (80-94); Mean Platelet Vol. 9.8 fl (6.2-12.0); Monocyte# 0.72 X10^3/uL; Monocyte% 8.2 % (0-10); NRBC Flagged by Analyzer 0 % (0-5); Neutrophil # 6.79 X10^3/uL (2.7-7.7); Platelet Count 284 K/mm3 (150-450); RBC Distribution Width CV 13.5 % (11.6-14.6); RBC Distribution Width SD 48.8 fl (35.1-43.9); Red Blood Count 3.92 M/mm3 (4.6-6.2); White Blood Count 8.8 K/mm3 (4.4-11.0)
[2023-01-08 16:05] LABS: ALB/GLOB Ratio 0.9 RATIO (0.9-2.4); AST(SGOT) 13 U/L (15-37); Alanine Aminotransfer ALT/SGPT 21 U/L (16-61); Albumin, Serum 3.5 g/dL (3.2-5.0); Alkaline Phosphatase 76 U/L (45-117); Anion Gap 6 (5-15); BUN 19 mg/dL (7-18); BUN/Creat Ratio 12.7 RATIO (10-20); Calcium,Total 8.6 mg/dL (8.5-10.1); Chloride 104 mmol/L (98-107); EST Glomerular Filtration Rate 47 mL/min (>60); Est Glom Filt Rate - Afr Amer 57 mL/min (>60); Estimated Creatinine Clearance 36.66 ml/min; Globulin 3.8 g/dL (2.2-4.2); Glucose 313 mg/dL (74-106); Potassium 3.8 mmol/L (3.5-5.1); Protein, Total 7.3 g/dL (6.4-8.2); Sodium Level 137 mmol/L (136-145); Thyroid Stim Hormone (TSH) 0.68 uIU/mL (0.358-3.74)
[2023-01-08 16:21] LABS: Color, Urine Yellow (Yellow); Glucose, Dipstick 1000 mg/dl (Normal); Ketone-Dipstick Negative (Negative); Leukocyte Esterase-Dipstick Negative /ul (Negative); Nitrite-Dipstick Negative (Negative); Occult Blood-Urine Negative /ul (Negative); Protein-Dipstick 15 mg/dl (Negative); Urine Bilirubin Dipstick Negative (Negative); Urine Clarity Clear (Clear); Urine Urobilinogen Normal (Normal)
[2023-01-08 16:21] LABS: Alcohol, Blood (Medical)-Serum < 3.0 mg/dL
[2023-01-08 16:22] LABS: Bacteria 0 SEEN /hpf (None Seen); Mucous, Urine 0 SEEN /hpf (<or=2+); Red Blood Cells-Urine 0 SEEN /hpf (0-5); White Blood Cells 0 SEEN /hpf (0-5)
[2023-01-08 16:31] LABS: Squamous Epithelial Cells - UA 0-5 SEEN /hpf (0-5)
[2023-01-08 16:36] LABS: Amphetamine Urine VISTA NEGATIVE (<1000 ng/mL); Barbiturate Urine VISTA NEGATIVE (< 200 ng/mL); Benzodiazepine Urine VISTA NEGATIVE (< 200 ng/mL); Cocaine Urine VISTA NEGATIVE (< 300 ng/mL); Ecstacy Urine VISTA NEGATIVE (< 500 ng/mL); Methadone Urine VISTA NEGATIVE (< 300 ng/mL); PCP Urine VISTA NEGATIVE (< 25 ng/mL); THC Urine VISTA NEGATIVE (< 50 ng/mL); Vista UDS pH Range 6
--- NOTE | 2023-01-08 17:12 | NURSING ---
FAXED CHART TO [facility]
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
[2023-01-08] MEDS: Ziprasidone IM 20 MG/ML VIAL 10 MG IM (17:23)
[2023-01-08 17:52] VITALS: BP 149/120; PULSE 122; RESP 22; TEMP 36.8; O2SAT 99
[2023-01-08 19:00] VITALS: BP 130/106; PULSE 102; RESP 20; TEMP 36.7; O2SAT 95
--- NOTE | 2023-01-08 19:05 | ED.RN ---
pt resting, awake- incontinent of urine. cleaned with bath wipes, new attends. removed from restraints. walked to bathroom.
[2023-01-08 22:00] VITALS: RESP 17
[2023-01-08 22:41] VITALS: RESP 17
--- NOTE | 2023-01-08 22:41 | ED.RN ---
crisis eval patient they are working on placement
[2023-01-08 23:41] VITALS: RESP 16
[2023-01-09] VITALS: BP 123/84; PULSE 97; RESP 17; O2SAT 96
[2023-01-09 01:00] VITALS: RESP 15
--- NOTE | 2023-01-09 02:56 | ED.RN ---
REPORT CALLED TO KIMBERLY AT [facility]. GOING TO ROOM 316.
--- NOTE | 2023-01-09 02:59 | ED.RN ---
REPORT CALLED BY Silverio ROSEN
[2023-01-09 03:19] VITALS: RESP 18
[2023-01-09 05:05] VITALS: BP 121/74; PULSE 81; RESP 16; TEMP 36.1; O2SAT 100; O2SAT 97
[2023-01-09 05:57] VITALS: RESP 16
== END 2023-01-09 08:08 ==
PROVIDERS: Emergency Provider Emergency Medicine; Visit Provider Emergency Medicine
DX: F03.918 Unspecified dementia, unspecified severity, with other behavioral disturbance (principal); E11.9 Type 2 diabetes mellitus without complications; E78.5 Hyperlipidemia, unspecified; I10 Essential (primary) hypertension; Z79.84 Long term (current) use of oral hypoglycemic drugs; Z79.82 Long term (current) use of aspirin; Z79.899 Other long term (current) drug therapy; Z87.891 Personal history of nicotine dependence
CPT/HCPCS: 70450; 71045; 80053; 80307; 81001; 82077; 84443; 85025; 87811; 93005; 96372; 99284; A4216; J3486